=== PATIENT | female | born 1960 | race Caucasian/White ===

== ENCOUNTER → 2022-01-05 09:25 | Outpatient (BNVA) | payer MEDICAID, SELFPAY | PROVIDERS: PCP Internal Medicine; Visit Provider Internal Medicine | DX: J44.9 Chronic obstructive pulmonary disease, unspecified (principal); F17.210 Nicotine dependence, cigarettes, uncomplicated | CPT/HCPCS: 99212 ==

== ENCOUNTER 2022-01-26 09:20 | Outpatient (REF) | payer MEDICAID, SELFPAY ==
--- NOTE | 2022-01-26 13:03 | PFT_ITS ---
Forced vital capacity 76%, FEV1 44%. FEV1/FVC ratio is 44. [id number] 18% and MVV 43%. Post bronchodilator therapy, there is a slight improvement in FVC and [id number]. Total lung capacity 119% and residual volume 172%. Diffusion capacity 42% CONCLUSION: Severe obstructive airway disorder with evidence of air trapping. Minimal response to bronchodilator therapy. Compared to PFT results of 09/21/2017, the flow volumes are further decreased. Diffusion capacity is also slightly decreased. The total lung capacity and residual volume are increased indicative of increased air trapping. Delores Hilario MD MSB/MODL / [id number]
== END 2022-01-26 09:21 | disposition home or self-care (01) ==
LOC: HO.RESP 09:20
PROVIDERS: PCP Internal Medicine; Visit Provider Internal Medicine
DX: R06.00 Dyspnea, unspecified (principal); J44.9 Chronic obstructive pulmonary disease, unspecified; F17.200 Nicotine dependence, unspecified, uncomplicated
CPT/HCPCS: 94060; 94727; 94729

== ENCOUNTER → 2022-03-14 09:26 | Outpatient (BNVA) | payer MEDICAID, SELFPAY | PROVIDERS: PCP Internal Medicine; Visit Provider Internal Medicine | DX: J44.9 Chronic obstructive pulmonary disease, unspecified (principal); F17.210 Nicotine dependence, cigarettes, uncomplicated | CPT/HCPCS: 99212 ==

== ENCOUNTER → 2022-06-15 10:22 | Outpatient (BNVA) | payer MEDICAID, SELFPAY | PROVIDERS: PCP Internal Medicine; Visit Provider Internal Medicine | DX: J44.9 Chronic obstructive pulmonary disease, unspecified (principal); F17.210 Nicotine dependence, cigarettes, uncomplicated | CPT/HCPCS: 99212 ==

== ENCOUNTER 2022-10-10 09:47 | Outpatient (AMB) | payer MEDICAID, SELFPAY ==
[2022-10-10 09:49] VITALS: BP 124/68; PULSE 84; O2SAT 95; BMI 18.9
--- NOTE | 2022-10-10 09:49 | MHC.OFFVIS ---
Intake Vital Signs 10/10/22 09:49 Height 5 ft 5 in Weight 113 lb 8.609 oz BMI 18.9 BP 124/68 Blood Pressure Location Rt brachial Position Sitting Pulse 84 Pulse Source Pulse Oximeter Pulse Oximetry (%) 95 Oxygen Delivery Method Room Air Intake Visit Reasons: copd Intake Note: Pt reports getting a lung scan about 2 months ago and is looking to discuss results. Allergies No Known Allergies Allergy (Verified 10/10/22 10:01) Medication List - Last Reconciled 10/10/22 by Delores Hilario MD albuterol sulfate 90 mcg/actuation (Ventolin HFA) 2 puffs PO Q6H PRN bupropion HCl (Wellbutrin XL) 300 mg PO QAM fluticasone propion-salmeterol 500-50 mcg/dose (Advair Diskus) 1 inh inhalation BID lorazepam 0.5 mg PO DAILY PRN Do you need a note to return to daycare/school/sports/work: No HPI copd HPI Details 62 years old very pleasant lady with history of anxiety disorder, and ongoing smoking. She is being followed for COPD, Her pulmonary status remains very stable. She does have intermittent cough and also shortness of breath on walking up hill or climbing stairs. No attacks of sustained cough or wheezing. She was able to quit smoking only for 2 days then resumed is 4 cigarettes a day. She has tried Chantix in the past but it causes side effects, she does have nicotine patch at home, .but not using it Overall her pulmonary status is remaining stable. She did have low does CT scan, [address] [facility] and was reported benign category 2. [facility] Medical History COPD (chronic obstructive pulmonary disease) Depression Nicotine dependence, cigarettes, uncomplicated Social History Patient Tobacco Use Status: Current everyday Tobacco user Cigarette Packs Per Day: 0.5 Cigarettes Per Day: 4 Years Smoked: 50 Review of Systems Const All systems reviewed & are unremarkable except as noted in HPI and below Eyes Reports no additional complaints ENT Reports nasal congestion (Mild at the change of weather) Card Reports no additional complaints Resp Reports as per HPI GI Reports no additional complaints Reports no additional complaints Musc Reports no additional complaints Skin/Breast Reports system reviewed and no additional complaints, except as documented Neuro Reports no additional complaints Psych Reports anxiety Endo Reports no additional complaints Physical Exam Vital Signs: Last Vital Signs Pulse 84 10/10/22 09:49 BP 124/68 10/10/22 09:49 Pulse Ox 95 10/10/22 09:49 Oxygen Delivery Method Room Air 10/10/22 09:49 BMI result Body Mass Index 18.9 She is of a thin build, sitting comfortably, no distress noted. Const General: comfortable, no acute distress, alert and awake Orientation/consciousness: patient oriented x3 HEENT Head: Yes normal to inspection General nose exam: No nasal polyps present and No nasal discharge present Face and sinus: Yes sinuses nontender Mouth: oropharynx normal Throat: Yes posterior oropharynx normal Eyes General: appearance normal, both eyes and all related structures Neck Neck: Yes normal visual inspection, Yes no lymphadenopathy, Yes trachea midline and Yes no JVD Thyroid: Thyroid normal Chest Chest palpation & inspection: normal inspection of the chest, normal palpation of entire chest wall and no tenderness Resp Other: Percussion note hyper-resonant especially over the lower half of the chest. Breath sounds are distant with. Prolonged expiratory phase No wheezes are heard today . Cardio Palpation: normal PMI Rate: regular rate Rhythm: regular rhythm Heart sounds: no gallops and no murmurs Peripheral pulses: Peripheral pulses 2+ throughout GI Palpation (GI): Soft to palpation, nontender, No hepatosplenomegaly present and no masses Auscultation: normal bowel sounds Back/Spine/Pelvis Thoracic/Lumbar Spine: thoracic and lumbar spine normal to inspection Skin General skin exam: no rashes or lesions noted Neuro General: patient oriented x3 and no focal motor deficits Cranial nerves: Yes CN's II-XII intact bilaterally Extrem General: Yes normal to inspection, Yes no clubbing, cyanosis or edema and Yes no calf tenderness Psych Appearance: grossly normal and well kempt Speech and movement: Normal speech and movement present Assessment & Plan Assessment & Plan (1) Nicotine dependence, cigarettes, uncomplicated: Comment: (Smoker 1ppd x 40yrs, now 4 cig/day) Strongly counselled to quit smoking. She is already on both Bupropion on XL 300 mg daily. Advised to use nicotine patch 14 mg daily to help in quitting cigarettes. Code(s): F17.210 - Nicotine dependence, cigarettes, uncomplicated (2) COPD (chronic obstructive pulmonary disease): Comment: (Severe COPD) remains stable . [place] : CONTINUE ADVAIR 500-50 1 INHALATION B.I.D. AND USE PROAIR 2 PUFFS Q 4-6 HOURS P.R.N. Code(s): J44.9 - Chronic obstructive pulmonary disease, unspecified Coding Level of Care Code Est Pt Level 3 (66271) Diagnoses Nicotine dependence, cigarettes, uncomplicated F17.210 COPD (chronic obstructive pulmonary disease) J44.9
== END 2022-10-10 10:03 | disposition home or self-care (01) ==
PROVIDERS: PCP Internal Medicine; Visit Provider Internal Medicine
DX: F17.210 Nicotine dependence, cigarettes, uncomplicated (principal); J44.9 Chronic obstructive pulmonary disease, unspecified
CPT/HCPCS: 99213

== ENCOUNTER → 2022-10-10 09:47 | Outpatient (BNVA) | payer MEDICAID, SELFPAY | PROVIDERS: PCP Internal Medicine; Visit Provider Internal Medicine | DX: J44.9 Chronic obstructive pulmonary disease, unspecified (principal); F32.A Depression, unspecified; F17.210 Nicotine dependence, cigarettes, uncomplicated; Z79.899 Other long term (current) drug therapy | CPT/HCPCS: 99212 ==

== ENCOUNTER 2023-07-12 09:28 | Outpatient (AMB) | payer MEDICAID, SELFPAY ==
--- NOTE | 2023-07-12 09:47 | A.OFFVIS_ITS ---
Vital Signs 07/12/23 09:48 Height 5 ft 5 in Weight 115 lb BMI 19.1 BP 120/70 Blood Pressure Location Lt brachial Position Sitting Pulse 77 Pulse Source Pulse Oximeter Pulse Oximetry (%) 97 Oxygen Delivery Method Room Air Intake Visit Reasons: copd Intake Note: pt is here for follow up and states cough with some phelgm, stairs and long distance affect her breathing. Direct Care Professional Required: No Allergies No Known Allergies Allergy (Verified 07/12/23 10:01) Medication List - Last Reconciled 07/12/23 by Delores Hilario MD albuterol sulfate 90 mcg/actuation (Ventolin HFA) 2 puffs PO Q6H PRN bupropion HCl XL (Wellbutrin XL) 300 mg PO QAM fluticasone propion-salmeterol 500-50 mcg/dose (Advair Diskus) 1 inh inhalation BID lorazepam 0.5 mg PO DAILY PRN Do you need a note to return to daycare/school/sports/work: No HPI HPI copd: Details: 63 years old female a case of chronic obstructive pulmonary disease and ongoing smoking, She is here for follow-up after almost 9 months. Luckily she has had no acute exacerbation. However she continues to have bouts of cough especially in the morning hours. Taking a shower and steam inhalation helps. She was moving from 1st floor to the 2nd floor apartment and had increased anxiety thus increased her smoking to almost 10 cigarettes a day. She claims that now she has cut it down to 6 cigarettes a day. She has had treatment with Chantix as well as nicotine patches in the past . Currently she is on Wellbutrin 300 mg daily for her anxiety, and this should help her to quit smoking also. [facility] Medical History Depression Nicotine dependence, cigarettes, uncomplicated COPD (chronic obstructive pulmonary disease) Social History Patient Tobacco Use Status: Current everyday Tobacco user Cigarette Packs Per Day: 0.5 Cigarettes Per Day: 6 Years Smoked: 50 Review of Systems Const All systems reviewed & are unremarkable except as noted in HPI and below Eyes Reports no additional complaints ENT Reports nasal congestion (Mild at the change of weather) Card Reports no additional complaints Resp Reports as per HPI GI Reports no additional complaints Reports no additional complaints Musc Reports no additional complaints Skin/Breast Reports system reviewed and no additional complaints, except as documented Neuro Reports no additional complaints Psych Reports anxiety Endo Reports no additional complaints Physical Exam Vital Signs: Last Vital Signs Pulse 77 07/12/23 09:48 BP 120/70 07/12/23 09:48 Pulse Ox 97 07/12/23 09:48 Oxygen Delivery Method Room Air 07/12/23 09:48 BMI result Body Mass Index 19.1 She is of a thin build, sitting comfortably, no distress noted. Const General: comfortable, no acute distress, alert and awake Orientation/consciousness: patient oriented x3 HEENT Head: Yes normal to inspection General nose exam: No nasal polyps present and No nasal discharge present Face and sinus: Yes sinuses nontender Mouth: oropharynx normal Throat: Yes posterior oropharynx normal Eyes General: appearance normal, both eyes and all related structures Neck Neck: Yes normal visual inspection, Yes no lymphadenopathy, Yes trachea midline and Yes no JVD Thyroid: Thyroid normal Chest Chest palpation & inspection: normal inspection of the chest, normal palpation of entire chest wall and no tenderness Resp Other: Percussion note hyper-resonant especially over the lower half of the chest. Breath sounds are distant with. Prolonged expiratory phase No wheezes are heard today . Cardio Palpation: normal PMI Rate: regular rate Rhythm: regular rhythm Heart sounds: no gallops and no murmurs Peripheral pulses: Peripheral pulses 2+ throughout GI Palpation (GI): Soft to palpation, nontender, No hepatosplenomegaly present and no masses Auscultation: normal bowel sounds Back/Spine/Pelvis Thoracic/Lumbar Spine: thoracic and lumbar spine normal to inspection Skin General skin exam: no rashes or lesions noted Neuro General: patient oriented x3 and no focal motor deficits Cranial nerves: Yes CN's II-XII intact bilaterally Extrem General: Yes normal to inspection, Yes no clubbing, cyanosis or edema and Yes no calf tenderness Psych Appearance: grossly normal and well kempt Speech and movement: Normal speech and movement present Office Procedures Spirometry Testing Spirometry Comments: Spirometry done in the office, Dr. Hilario has the results results scanned to her chart. 29819- Spirometry Results Reviewed Results Reviewed: SPIROMETRY IN THE OFFICE. FVC FEV1 FEF 25-75 09/21/2017 85 % 51 % 19 % 77 45 24 Assessment & Plan Assessment & Plan (1) COPD (chronic obstructive pulmonary disease): Comment: (Severe COPD) remains stable . DUE TO CONTINUED SMOKING THERE IS SLIGHT DECLINE IN HER FVC AND FEV1, Code(s): J44.9 - Chronic obstructive pulmonary disease, unspecified Category: Medical Plan: [place] : CONTINUE ADVAIR but the does is decreased to 250-50 1 INHALATION B.I.D. add Spiriva HandiHaler 1 inhalation daily, explained to the patient. AND USE PROAIR 2 PUFFS Q 4-6 HOURS P.R.N. (2) Nicotine dependence, cigarettes, uncomplicated: Comment: (Smoker 1ppd x 40yrs, now 6 cig/day) Code(s): F17.210 - Nicotine dependence, cigarettes, uncomplicated Category: Medical Plan: Strongly counselled to quit smoking. She is already on Bupropion on XL 300 mg daily. SHE IS IN ANNUAL LUNG SCREENING PROGRAM AT [facility] Orders: Orders AMB Spirometry Testing Today J44.9 - Chronic obstructive pulmonary disease, unspecified Medications: New tiotropium bromide (Spiriva with HandiHaler) puncture 1 cap using device; one dose = 2 inhalations 1 cap inhalation DAILY 30 days 60 inhalations 5RF fluticasone propion-salmeterol 250-50 mcg/dose (Advair Diskus) 1 inh inhalation BID 30 days 60 ea 5RF Coding Level of Care Code Est Pt Level 3 (84235) Diagnoses COPD (chronic obstructive pulmonary disease) J44.9 Nicotine dependence, cigarettes, uncomplicated F17.210 CPT Codes Spirometry - CPT: 28487- Spirometry ([id number])
[2023-07-12 09:48] VITALS: BP 120/70; PULSE 77; O2SAT 97; BMI 19.1
== END 2023-07-12 10:28 | disposition home or self-care (01) ==
PROVIDERS: PCP Internal Medicine; Referring Provider Internal Medicine; Visit Provider Internal Medicine
DX: J44.9 Chronic obstructive pulmonary disease, unspecified (principal); F17.210 Nicotine dependence, cigarettes, uncomplicated
CPT/HCPCS: 94010; 99213

== ENCOUNTER → 2023-07-12 09:28 | Outpatient (BNVA) | payer MEDICAID, SELFPAY | PROVIDERS: PCP Internal Medicine; Visit Provider Internal Medicine | DX: J44.9 Chronic obstructive pulmonary disease, unspecified (principal); F17.210 Nicotine dependence, cigarettes, uncomplicated | CPT/HCPCS: 94010; 99212 ==

== ENCOUNTER 2023-09-27 11:03 | Outpatient (REF) | payer MEDICAID, SELFPAY ==
[2023-09-27 14:46] LABS: MANUAL DIFF FLAG NO
[2023-09-27 14:54] LABS: Basophils Absolute Auto 0.1 X10*3/uL (0.0-0.2); Basophils Percent Auto 1.1 % (0-2); Eosinophils Absolute Auto 0.1 X10*3/uL (0.0-0.4); Hematocrit 41.6 % (37.0-47.0); Hemoglobin 14.5 g/dl (12.0-16.0); Imm Gran Abs Auto 0.02 X10*3/uL (0.00-0.03); Imm Gran Pct Auto 0.4 % (0.0-0.4); Lymphocytes Absolute Auto 1.3 X10*3/uL (1.2-4.9); Lymphocytes Percent Auto 23.9 % (20-40); Mean Corpuscular HGB Conc 34.9 g/dl (31.0-35.0); Mean Corpuscular Hemoglobin 31.7 pg (27.0-33.0); Mean Platelet Volume 9.6 fL (9.4-12.3); Monocytes Absolute Auto 0.4 X10*3/uL (0.1-1.2); Monocytes Percent Auto 7.1 % (2-11); Neutrophils Absolute Auto 3.7 x10*3/uL (2.0-8.3); Neutrophils Percent Auto 65.5 % (45-73); Platelet Count 264 X10*3/uL (160-400); Red Blood Count 4.57 X10*6/uL (4.20-5.50); Red Cell Distribution Width 12.7 % (11.0-16.0); White Blood Count 5.6 X10*3/uL (4.8-10.8)
[2023-09-27 15:18] LABS: Alanine Aminotransferase 17 U/L (0-31); Albumin Level 4.3 g/dL (3.5-5.0); Alkaline Phosphatase 63 U/L (39-117); Anion Gap 13 (12-20); Aspartate Amino Transferase 27 U/L (5-31); Bilirubin Total 0.5 mg/dL (0.0-1.0); Blood Urea Nitrogen 11 mg/dL (9-16); Calcium 9.7 mg/dL (8.4-10.2); Carbon Dioxide 24 mmol/L (22-29); Chloride 100 mmol/L (96-108); Cholesterol 179 mg/dL (<200); Estimated Glomerular Filt Rate > 60; Glucose Random 89 mg/dL (60-115); HDL Cholesterol 75 mg/dL (>40); LDL Cholesterol Calculated 95 mg/dL (<100); Potassium 4.9 mmol/L (3.3-5.1); Sodium 132 mmol/L (135-145); Total Protein 7.5 g/dL (6.5-8.0); Triglycerides 46 mg/dL (<150)
[2023-09-28 08:23] LABS: HIV AB/AG Nonreactive (Nonreactive); HIV Num 1 0.05 S/CO (0.00-0.99); ~HepC Num1 0.06 S/CO (0.00-0.79); ~Hepatitis C Antibody Nonreactive (Nonreactive)
== END 2023-09-27 11:04 | disposition home or self-care (01) ==
LOC: HO.CHCLDS 11:03
PROVIDERS: Visit Provider Internal Medicine
DX: J43.8 Other emphysema (principal)
CPT/HCPCS: 36415; 80053; 80061; 85025; 86803; 87389

== ENCOUNTER 2023-12-04 09:45 | Outpatient (AMB) | payer MEDICAID, SELFPAY ==
--- NOTE | 2023-12-04 09:46 | MHC.OFFVIS ---
Vital Signs 12/04/23 09:48 Height 5 ft 5 in Weight 116 lb BMI 19.3 BP 106/72 Blood Pressure Location Lt brachial Position Sitting Respiration 15 Pulse 69 Pulse Source Pulse Oximeter Pulse Oximetry (%) 97 Oxygen Delivery Method Room Air Intake Visit Reasons: COPD Allergies No Known Allergies Allergy (Verified 12/04/23 09:58) Medication List - Last Reconciled 12/04/23 by Delores Hilario MD albuterol sulfate 90 mcg/actuation (Ventolin HFA) 2 puffs PO Q6H PRN bupropion HCl XL (Wellbutrin XL) 300 mg PO QAM fluticasone propion-salmeterol 250-50 mcg/dose (Advair Diskus) 1 inh inhalation BID 30 days lorazepam 0.5 mg PO DAILY PRN tiotropium bromide (Spiriva with HandiHaler) 1 cap inhalation DAILY 30 days Do you need a note to return to daycare/school/sports/work: No HPI HPI COPD: Details: THIS 63 YEARS OLD FEMALE, HAS ADVANCED COPD, DUE TO HER LIFELONG SMOKING. BREATHING HENRY DOING WELL AND REMAINS STABLE. SHE SAY IS THAT SHE CAN WALK A FEW MORE BLOCKS WITHOUT GETTING SHORT OF BREATH. SHE IS HAPPY WITH THE CURRENT COMBINATION OF ADVAIR AND SPIRIVA. USES VENTOLIN FOR RESCUE INHALER BUT ONLY ONCE IN A WHILE. UNFORTUNATELY CONTINUES TO SMOKE BUT HAS CUT DOWN TO 5 CIGARETTES A DAY. SHE SAY IS THE STRESSFUL SITUATIONS MAKE HER SMOKE MORE. SHE IS ON WELLBUTRIN XL 300 MG DAILY , WHICH IS HELPFUL. [facility] Medical History Depression Nicotine dependence, cigarettes, uncomplicated COPD (chronic obstructive pulmonary disease) Social History Patient Tobacco Use Status: Current everyday Tobacco user Cigarette Packs Per Day: 0.5 Cigarettes Per Day: 6 Years Smoked: 50 Review of Systems Const All systems reviewed & are unremarkable except as noted in HPI and below Eyes Reports no additional complaints ENT Reports nasal congestion (Mild at the change of weather) Card Reports no additional complaints Resp Reports as per HPI GI Reports no additional complaints Reports no additional complaints Musc Reports no additional complaints Skin/Breast Reports system reviewed and no additional complaints, except as documented Neuro Reports no additional complaints Psych Reports anxiety Endo Reports no additional complaints Physical Exam Vital Signs: Last Vital Signs Pulse 69 12/04/23 09:48 Resp 15 12/04/23 09:48 BP 106/72 12/04/23 09:48 Pulse Ox 97 12/04/23 09:48 Oxygen Delivery Method Room Air 12/04/23 09:48 BMI result Body Mass Index 19.3 She is of a thin build, sitting comfortably, no distress noted. Const General: comfortable, no acute distress, alert and awake Orientation/consciousness: patient oriented x3 HEENT Head: Yes normal to inspection General nose exam: No nasal polyps present and No nasal discharge present Face and sinus: Yes sinuses nontender Mouth: oropharynx normal Throat: Yes posterior oropharynx normal Eyes General: appearance normal, both eyes and all related structures Neck Neck: Yes normal visual inspection, Yes no lymphadenopathy, Yes trachea midline and Yes no JVD Thyroid: Thyroid normal Chest Chest palpation & inspection: normal inspection of the chest, normal palpation of entire chest wall and no tenderness Resp Other: Percussion note hyper-resonant especially over the lower half of the chest. Breath sounds are distant with. Prolonged expiratory phase No wheezes are heard today . Cardio Palpation: normal PMI Rate: regular rate Rhythm: regular rhythm Heart sounds: no gallops and no murmurs Peripheral pulses: Peripheral pulses 2+ throughout GI Palpation (GI): Soft to palpation, nontender, No hepatosplenomegaly present and no masses Auscultation: normal bowel sounds Back/Spine/Pelvis Thoracic/Lumbar Spine: thoracic and lumbar spine normal to inspection Skin General skin exam: no rashes or lesions noted Neuro General: patient oriented x3 and no focal motor deficits Cranial nerves: Yes CN's II-XII intact bilaterally Extrem General: Yes normal to inspection, Yes no clubbing, cyanosis or edema and Yes no calf tenderness Psych Appearance: grossly normal and well kempt Speech and movement: Normal speech and movement present Results Reviewed Results Reviewed: RECENT LOW-DOSE CT SCAN AT [facility] JULY 24, REPORT IS REVIEWED, A FEW LUNG DENSITIES REMAIN STABLE, SHE IS GOING TO HAVE REPEAT CT SCAN IN 6 MONTHS Assessment & Plan Assessment & Plan (1) COPD (chronic obstructive pulmonary disease): Comment: (Severe COPD) remains stable . She is happy with the current medical regimen, Use of rescue inhaler is infrequent Code(s): J44.9 - Chronic obstructive pulmonary disease, unspecified Category: Medical Plan: Continue Advair 250-51 inhalation b.i.d. Spiriva HandiHaler 1 inhalation daily Ventolin HFA 2 puffs Q 6 hours p.r.n.. (2) Nicotine dependence, cigarettes, uncomplicated: Comment: (Smoker 1ppd x 40yrs, now down to 5 cig/day) , states that because of her stressful life she is not able do quit completely. Code(s): F17.210 - Nicotine dependence, cigarettes, uncomplicated Category: Medical Plan: Again stressed that she should aim to quit smoking completely. Continue taking Wellbutrin XL 300 mg daily Continue to go for low-dose CT scan of the chest as recommended. Coding Level of Care Code Est Pt Level 3 (65687) Diagnoses COPD (chronic obstructive pulmonary disease) J44.9 Nicotine dependence, cigarettes, uncomplicated F17.210
[2023-12-04 09:48] VITALS: BP 106/72; PULSE 69; RESP 15; O2SAT 97; BMI 19.3
== END 2023-12-04 10:00 | disposition home or self-care (01) ==
PROVIDERS: PCP Internal Medicine; Visit Provider Internal Medicine
DX: J44.9 Chronic obstructive pulmonary disease, unspecified (principal); F17.210 Nicotine dependence, cigarettes, uncomplicated
CPT/HCPCS: 99213

== ENCOUNTER → 2023-12-04 09:45 | Outpatient (BNVA) | payer MEDICAID, SELFPAY | PROVIDERS: PCP Internal Medicine; Visit Provider Internal Medicine | DX: J44.9 Chronic obstructive pulmonary disease, unspecified (principal); F17.210 Nicotine dependence, cigarettes, uncomplicated | CPT/HCPCS: 99212 ==

== ENCOUNTER 2024-05-07 09:13 | Outpatient (REF) | payer MEDICAID, SELFPAY ==
--- OUTSIDE RECORDS SUMMARY | 2024-05-07 09:27 | XMS_ITS | Encounter Summary ---
Author Organization [employer] Address [address] [place] [address] Care Team Providers Care Gang Hemstitching Machine Operator Name Role Phone Trevor Cyr MD Primary Care Prov ider Encounter Details Date Type Department Care Team (Latest Contact Info) Description 05/03/2018 Abstract [facility] CONVERSIONS Dental, Provider, DDS Social History Tobacco Use Types Packs/Day Years Used Date Smoking Tobacco: Never Assessed Comments Unknown Sex and Gender Information Value Date Recorded Sex Assigned at Female 01/16/2022 10:19 AM EDT Legal Sex Female 10:19 AM EDT Gender Identity Female 01/16/2022 10:19 AM EDT Sexual Orientation Don't know 01/16/2022 10 :19 AM EDT documented as of this encounter Plan of Treatment Not on file documented as of this encounter Visit Diagnoses Not on filedocumented in this encounter Care Teams Gang Hemstitching Machine Operator Relationship Specialty Start Date End Date Trevor Cyr MD [address] [place] [address] PCP - General Internal Medicine 08/12/19 documented as of this encounter
--- OUTSIDE RECORDS SUMMARY | 2024-05-07 09:27 | XMS_ITS | Encounter Summary ---
Author Organization [employer] Address [address] [place] [address] Care Team Providers Care [employer] Customer Service Name Role Phone Trevor Cyr MD Primary Care Prov ider Encounter Details Date Type Department Care Team (Latest Contact Info) Description 04/16/2024 Travel Social History Tobacco Use Types Packs/Day Years Used Date Smoking Tobacco: Every Day Cigarettes Smokeless Tobacco: Never Alcohol Use Standard Drinks/Week Comments Not Currently 0 (1 standard drink = 0.6 oz pur e alcohol) Depression Answer Date Recorded Patient Health Questionnaire-9 Score 2 09/27/2023 Patient Health Questionnaire-9 Score 2 09/27/2023 Last PHQ-9: Questionnaire Data Not on file 0 09/27/2023 Housing Stability Answer Date Recorded What is your housing situation today? I have lakes[place]ia chaparro 09/27/[address] you li ve. Do you have problems with any of the following? None of the above 09/27/2023 Food Insecurity Answer Date Recorded Within the past 12 months, y ou worried that your food would run out before you got money to buy more: Never True 09/27/2023 Within the past 12 months,th e food you bought just didn't last and you didn't have enough money to get more: Never True 01/2024 Transportation Answer Date Recorded In the past 12 months, has l ack of transportation kept you from medical appts, meetings, work or from getting things needed for daily living? No 09/27/2023 Utilities Answer Date Recorded In the past 12 months, has t he electric, gas, oil or water company threatened to shut off services in your home? No 09/27/2023 Depression Answer Date Recorded Patient Health Questionnaire-2 Score 2 09/27/2023 Internet Access Answer Date Recorded Internet Access Q1 Yes 11/19/2023 Internet Access Q2 Not on file 11/19/2023 Comments Unknown Sex and Gender Information Value Date Recorded Sex Assigned at Female 01/16/2022 10:19 AM EDT Legal Sex Female 10:19 AM EDT Gender Identity Female 01/16/2022 10:19 AM EDT Sexual Orientation Don't know 01/16/2022 10 :19 AM EDT documented as of this encounter Plan of Treatment Not on file documented as of this encounter Visit Diagnoses Not on filedocumented in this encounter Additional Health Concerns Assessment Noted Time PHQ-9 Depression Total Score: 2 09/27/19 24 10:15 AM EDT documented as of this encounter Care Teams [employer] Customer Service Relationship Specialty Start Date End Date Trevor Cyr MD [address] [place] [id number] PCP - General Internal Medicine 08/12/19 documented as of this encounter
--- OUTSIDE RECORDS SUMMARY | 2024-05-07 09:27 | XMS_ITS | Encounter Summary ---
Author Organization [employer] Address [address] [place] [address] Care Team Providers Care Orthotic Technician Name Role Phone Trevor Cyr MD Primary Care Prov ider Encounter Details Date Type Department Care Team (Late st Contact Info) Description 07/30/2023 Orders Only [facility] [address] [place], [place] [id number] ProviderMarilyn MD Social History Tobacco Use Types Packs/Day Years Used Date Smoking Tobacco: Every Day Cigarettes 1 40 Smokeless Tobacco: Never Alcohol Use Standard Drinks/Week Comments Not Currently 0 (1 standard drink = 0.6 oz pur e alcohol) Depression Answer Date Recorded Patient Health Questionnaire-9 Score 6 07/18/2022 Housing Stability Answer Date Recorded What is your housing situation today? I have lakeshia chaparro 01/15/[address] you li ve. Do you have problems with any of the following? None of the above 01/15/2023 Food Insecurity Answer Date Recorded Within the past 12 months, y ou worried that your food would run out before you got money to buy more: Never True 01/15/2023 Within the past 12 months,th e food you bought just didn't last and you didn't have enough money to get more: Never True Transportation Answer Date Recorded In the past 12 months, has l ack of transportation kept you from medical appts, meetings, work or from getting things needed for daily living? No 01/15/2023 Utilities Answer Date Recorded In the past 12 months, has t he electric, gas, oil or water company threatened to shut off services in your home? No 01/15/2023 Depression Answer Date Recorded Patient Health Questionnaire-2 Score 6 07/18/2022 Comments Unknown Sex and Gender Information Value Date Recorded Sex Assigned at Female 01/16/2022 10:19 AM EDT Legal Sex Female 10:19 AM EDT Gender Identity Female 01/16/2022 10:19 AM EDT Sexual Orientation Don't know 01/16/2022 10 :19 AM EDT documented as of this encounter Plan of Treatment Not on file documented as of this encounter Procedures Procedure Name Priority Date/Time Associated Diagnosis Comments CT LUNG SCREENING Routine 07/25/2023 10:40 AM EDT documented in this encounter Results * CT Lung Screening Low dose (07/25/2023 10:40 AM EDT) Anatomical Region Laterality Modality Lung Computed Tomogra phy us Historical Provider MD WHEAT CT PROCEDURES Final R esult documented in this encounter Visit Diagnoses Not on filedocumented in this encounter Additional Health Concerns Assessment Noted Time PHQ-9 Depression Total Score: 6 07/19/19 23 10:58 AM EDT documented as of this encounter Care Teams Orthotic Technician Relationship Specialty Start Date End Date Trevor Cyr MD [address] [place] [id number] PCP - General Internal Medicine 08/12/19 documented as of this encounter
--- OUTSIDE RECORDS SUMMARY | 2024-05-07 09:27 | XMS_ITS | Clinical Summary ---
Author Organization [employer] Address [address] [facility] [address] [place] [address] Care Team Providers Care Folder Machine Adjuster Name Role Phone Trevor Cyr MD Primary Care Prov ider Allergies No known active allergies Medications Fluticasone-Mik meterol (Advair Diskus) 250-50 MCG/ACT aerosol powder Inhale 1 puff Once per day. Active tiotropium (Spiriva) [address] 1 capsule into inhaler and inhale in the morning. Active buPROPion XL (Wellbutrin XL) 300 MG 24 hr tablet Take 300 mg by mouth Once per day. Do not crush, chew, or split. Active LORazepam (Ativan) 0.5 MG tablet Take 0.5 mg by mouth every 8 (eight) hours if needed for anxiety. Active chlorhexidine (Peridex) 0.12 % solution Please use 15 ml solution orally. Swish for 60 seconds and spit. Do not rinse. 473 mL 1 4 Active albuterol (Ventolin HFA) 108 (90 Base) MCG/ACT inhalerIndicati ons:Other emphysema (CMS/HCC) Inhale 2 puffs every 4 (four) hours if needed for wheezing or shortness of breath. 18 g 11 5 Active Active Problems Problem Noted Date Diagnosed Date Smoker 03/20/2023 Assessment & Plan (03/20/2023 3:47 PM EST): Patient smoke 4-5 cig daily, she has been cutting down but refer patches are not helpful, she is on wellbutrin, she wants to keep cutting down, and will let me know if interested in other methods to help her stop smoking Encounter for screening mamm ogram for malignant neoplasm of breast 12/07/2022 Assessment & Plan (12/07/2022 10:37 AM EDT): Will order a mammogram Screening for colon cancer 03/30/2022 Assessment & Plan (12/07/2022 10:36 AM EDT): Will order cologuard Assessment & Plan (03/30/2022 11:11 AM EST): Will order FIT test, does not want to get a colonoscopy, risk vs benefits discussed Other emphysema 03/30/2022 Assessment & Plan (04/30/2024 9:23 AM EST): Followed by pneumology, on advair/spiriva/albuterol, no er visit or recent exacerbation, she is still smoking 4-5 cigarettes daily, she will let me know when interested in stopping Assessment & Plan (09/27/2023 10:55 AM EDT): Followed by pneumology, advair was decreased, on spiriva and rescue inhaler, no recent er visit, she is still smoking 5 cigs a day, she is trying to cut it down, not interested in treatment for now Assessment & Plan (03/20/2023 3:46 PM EST): No recent exacerbation, on advair, and albuterol for rescue, followed by pneumology, will follow reccomnendations Assessment & Plan (12/07/2022 10:37 AM EDT): Followed by pneumology, she is on advair 2 times a day, using rescue inhaler once a day, had lung cancer screening Assessment & Plan (07/18/2022 12:05 PM EDT): No recent er visit, followed by pneumology, had recent lung cancer screening, will renew advair/albuterol, reinforced smoking cessation Assessment & Plan (03/30/2022 5:04 PM EST): Patient on LABA and ventolin as rescue, following pneumonology, she has been trying to cut down on smoking, currently having 4 cigarettes a day, continue current management. Mammogram declined 03/30/2022 Assessment & Plan (03/30/2022 5:04 PM EST): Risk vs benefits discussed, she does not want to get a mammogram Encounters Date Type Department Care Team Description 04/30/2024 8:45 AM EST Office Visit [facility] [address] [place] [address] Trevor Cyr MD Other emphysema ([facility]) (Primary Dx); Screening for colon cancer; Encounter for immunization 04/30/2024 Travel 04/29/2024 Telephone [facility] [address] [place] [address] Trevor Cyr MD Chart Prep 04/16/2024 Travel 04/03/2024 Refill [facility] [address] [place] [address] Trevor Cyr MD Other emphysema ([facility]/HCC) 04/03/2024 Refill [facility] [address] [place] [address] Trevor Cyr MD Other emphysema ([facility]/HCC) 03/27/2024 11:30 AM EST Office Visit [facility] [address] [place] [address] Elizabeth Perdomo DDS 03/18/2024 9:00 AM EST Office Visit [facility] [address] [place] [address] Lazara Leslie DMD 02/28/2024 9:30 AM EST Office Visit [facility] [address] [place] [address] Lazara Leslie DMD 02/12/2024 3:30 PM EST Office Visit [facility] [address] [place] [address] Lazara Leslie DMD from Last 3 Months Immunizations Name Administration Dates Next Due Influenza Injectable Quadriv alant Preservative Free IIV4 MDCK 12/22/2021 Influenza injectable quadriv alent preservative free 04/06/2021,11/26/2019,12/30/2018 Influenza, IIV3, injectable 04/30/2024 Pneumococcal Conjugate PCV 13 09/13/2016 RSV Bivalent 04/30/2024 TD (adult), 2 Lf tetanus tox oid, preservative free, adsorbed 03/15/2007 Tdap 09/03/2017 Zoster, Recombinant 06/01/2022,03/30/2022 Social History Tobacco Use Types Packs/Day Years Used Date Smoking Tobacco: Every Day Cigarettes Smokeless Tobacco: Never Tobacco Cessation:Ready to Q uit: Not Asked; Counseling Given: Not Answered Alcohol Use Standard Drinks/Week Comments Not Currently [...] Don't know 01/16/2022 10 :19 AM EDT Last Filed Vital Signs Vital Sign Reading Time Taken Comments Blood Pressure 133/77 04/30/2024 8:56 AM EST Pulse 80 04/30/2024 8:56 AM EST Temperature 36.6 ??C (97.9 ??F) 04/30/2024 8:56 AM ES T Respiratory Rate 16 04/30/2024 8:56 AM EST Oxygen Saturation 99% 04/30/2024 8:56 AM EST Inhaled Oxygen Concentration - - Weight 53.3 kg (117 lb 9.6 oz) 04/30/2024 8:56 A M EST Height 165.1 cm (5' 5 ) 04/30/2024 8:56 AM EST Body Mass Index 19.57 04/30/2024 8:56 AM EST Plan of Treatment Health Maintenance Due Date Last Done Comments CT Colonography 1960 Colonoscopy 1960 Colorectal Cancer Screening 1960 FIT DNA/Cologuard 1960 FIT 1960 FOBT 1960 Sigmoidoscopy 1960 Alcohol/Substance Use Screening 1972 Hepatitis A Vaccines (1 of 2 - Risk 2-dose series) 1979 Mammogram 2000 Pneumococcal Vaccine: 50+ Years (2 of 2 - PPSV23) 11/08/2016 09/13/2016 Dental X-Ray: Bitewings 04/05/2019 04/04/2018 COVID-19 Vaccine ( season) 2023 04/06/2021, 08/29/2020, 08/01/2020 Dental Oral Exam 06/13/2024 12/14/2023, 05/03/2018 Dental Prophylaxis 06/16/2024 12/17/2023, 2018 Depression Screening 09/26/2024 09/27/2023, 09/27/19 24 SDOH Screening 09/26/2024 09/27/2023 Pap Smear 12/27/2024 12/27/2021 Tobacco Screening 03/27/2025 03/27/2024 Dental X-Ray: Full Mouth 12/14/2026 12/14/2023, 03/20 Cervical Cancer Screening 12/27/2026 HPV/Cotest 12/27/2026 12/27/2021 DTaP/Tdap/Td Vaccines (2 - Td or Tdap) 09/04/2027 09/03/2017, 03/15/2007 Lipid Panel 09/26/2028 09/27/2023, 12/02/2021 Zoster Vaccines Completed 06/01/2022, 03/30/2022 HIV Screening Completed 09/27/2023 Hepatitis C Screening Completed 09/27/2023 Influenza Vaccine Completed 04/30/2024, , 04/06/2021, Additional history exists RSV Patients and Patients Aged 60 years or older Completed 04/30/2024 HIB Vaccines Aged Out No longer eligi ble based on patient's age to complete this topic HPV Vaccines Aged Out No longer eligi ble based on patient's age to complete this topic Hepatitis B Vaccines Aged Out No long er eligible based on patient's age to complete this topic IPV Vaccines Aged Out No longer eligi ble based on patient's age to complete this topic Meningococcal Vaccine Aged Out No oh arin eligible based on patient's age to complete this topic RSV under 20 months Aged Out No longe r eligible based on patient's age to complete this topic Rotavirus Vaccines Aged Out No longer eligible based on patient's age to complete this topic Procedures Procedure Name Priority Date/Time Associated Diagnosis Comments DENTURE FOLLOWUP Routine 03/27/2024 11:3 0 AM EST CASE PRESENTATION, DETAILED AND EXTENSIVE TREATMENT PLANNING Routine 03/18/2024 9:00 AM EST Max COMPLETE DENTURE - MAXILLARY Routine 03/18/2024 9:00 AM EST 19,18,28,30,31 MANDIBULAR PARTIAL DENTURE - RESIN BASE (INCLUDING, RETENTIVE/CLASPING MATERIALS, RESTS, AND TEETH) Routine 03/18/2024 9:00 AM EST CASE PRESENTATION, DETAILED AND EXTENSIVE TREATMENT PLANNING Routine 02/28/2024 9:30 AM EST WAX TRY IN Routine 02/28/2024 9:30 AM EST CASE PRESENTATION, DETAILED AND EXTENSIVE TREATMENT PLANNING Routine 02/12/2024 3:30 PM EST BITE REGISTRATION Routine 02/12/2024 3:3 0 PM EST PROPHYLAXIS - ADULT Routine 12/17/2023 2 :00 PM EDT PANORAMIC RADIOGRAPHIC IMAGE Routine 12/14/2023 10:00 AM EDT PERIODIC ORAL EVALUATION - ESTABLISHED PATIENT Routine 12/14/2023 10:00 AM EDT HEPATITIS C AB W/REFL TO HCV RNA, QN, PCR Routine 09/27/2023 11:08 AM EDT Other emphysema (CMS/HCC) HIV 1/2 ANTIGEN/ANTIBODY, FOURTH GENERATION W/RFL Routine 09/27/2023 11:08 AM EDT Other emphysema (CMS/HCC) LIPID PANEL, STANDARD Routine 09/27/2023 11:06 AM EDT Other emphysema (CMS/HCC) THINPREP IMAGING PAP AND HPV MRNA E6/E7 WITH REFLEX TO HPV 16,18/45 Routine 12/27/2021 8:58 AM EDT BITEWING - SINGLE RADIOGRAPHIC IMAGE Routine 04/04/2018 12:00 AM EST from Last 3 Months or Most Recently Relevant to Health Maintenance Results * Hepatitis C Antibody with Reflex to HCV, RNA, Quantitative, Real-Time PCR (09/27/2023 11:08 AM EDT) Hepatitis C Antibody Nonreactive Nonreactive [facility] Comment:Antibodies to HCV no t detected; does not exclude early acuteHCV infection. Blood Venous blood specimen / Unknown 09/27/2023 11:08 AM EDT 09/27/2023 2:39 PM EDT us Trevor Bhat MD LAB BLOOD ORDERABL ES Final Result [facility] [address] [place] [address] [phone] * HIV-1/2 Antigen and Antibodies, Fourth Generation, with Reflexes (09/27/2023 11:08 AM EDT) HIV AB/AG Nonreactive Nonreactive [facility] Comment:HIV-1 p24 Ag and/or HIV-1/HIV-2 Ab not detected.A test result that is nonreactive does not exclude thepossibility of exposure to or infection with HIV-1 and/orHIV-2. Nonreactive results in this assay for individualswith prior exposure to HIV-1 and/or HIV-2 may be due toantigen and antibody levels that are below the limit ofdetection of this assay.The [employer] HIV Ag/Ab Combo assay result andsupplemental assay results should be interpreted inconjunction with the patient's clinical presentation,history and other laboratory results. If the results areinconsistent with clinical evidence, additional testing issuggested to confirm the result. Blood Venous blood specimen / Unknown 09/27/2023 11:08 AM EDT 09/27/2023 2:39 PM EDT us Trevor Bhat MD LAB BLOOD ORDERABL ES Final Result [facility] [address] [place] [phone] * Lipid Panel, Standard (09/27/2023 11:06 AM EDT) Triglycerides 46 <150 mg/dL [facility] Comment:Desirable Triglyceri de: less than 150 mg/dLBorderline High Triglyceride 150-199 mg/dLHigh Triglyceride: 200-499 mg/dLVery High Triglyceride: greater than or equal to 5OO mg/dL Cholesterol 179 <200 mg/dL [facility] Comment:Desirable Cholestero l: less than 200 mg/dLBorderline High Cholesterol: 200-239 mg/dLHigh Cholesterol: greater than 239 mg/dL LDL Cholesterol Calculated 95 <100 mg/dL [facility] Comment:Desirable LDL: less than 100 mg/dLNear Optimal/Above Optimal LDL: 110- 129 mg/dLBorderline High LDL: 130-159 mg/dLHigh LDL: 160-189 mg/dLVery High LDL: greater than or equal to 190 mg/dL HDL Cholesterol 75 >40 mg/dL [facility] Comment:Desirable HDL: great er than 40 mg/dL Note: This HDL assay may give artificially low results in patients with liver disease. Blood Venous blood specimen / Unknown 09/27/2023 11:06 AM EDT 09/27/2023 2:39 PM EDT Trevor Bhat MD LAB BLOOD ORDERABL ES Final Result [facility] [address] [place] [phone] * THINPREP TIS PAP AND HPV mRNA E6/E7 WITH REFLEX TO HPV 16,18/45 (12/27/2021 8:58 AM EDT) Clinical Information: None given [facility] COMMENT SEE COMMENT [facility] Comment: EXPLANATORY NOTE: ? The Pap is a screening test for cervical cancer. It is ?? not a diagnostic test and is subject to false negative ?? and false positive results. It is most reliable when a ?? satisfactory sample, regularly obtained, is submitted ?? with relevant clinical findings and history, and when ?? the Pap result is evaluated along with historic and ?? current clinical information. ?? COMMENT: This Pap test has been evaluated with computer assisted technology. [facility] Wardrobe Mistress : SEE COMMENT [facility] Comment: LAMAR, CT(ASCP) CT screening location: [address] ??[phone] HPV nRNA E6/E7 Not Detected Not Detected [facility] Comment: Methodology: Diagnostic Technician-Mediated Amplification This assay detects E6/E7 viral messenger RNA (mRNA) from 14 high-risk HPV types (16,18,31,33,35,39,45,51,52,56,58,59,66,68). ? Cervical sources are required for HPV testing. If a vaginal source from a patient who has had a total hysterectomy with removal of cervix was ?? submitted, please contact the testing laboratory for alternative testing options. ?? For additional information, please refer to http://education.[employer]/faq/MPF664l3 (This link if provided for information/ educational purposes only.) Interpretation/R esult: Negative for intraepithelial lesion or malignancy. [facility] LMP: PM [facility] Prev. BX: NONE GIVEN [facility] Prev. PAP: NIL 2014 [facility] SOURCE: None given [facility] Statement Of Adequacy: SEE COMMENT [facility] Comment: Satisfactory for evaluation. Endocervical/transformation zone component present. 12/27/2021 8:58 AM EDT [facility] PATHOLOGY ORDERABLES Final Result [facility] from Last 3 Months or Most Recently Relevant to Health Maintenance Insurance * Guarantor: Greer Sarabia Account Type Relation to Patient Date of Phone Billing Address Personal/Family Self [address] [place] [address] [facility] C3 Member Subscriber Plan / Payer (Ef fective 2022-Present) Name:Greer Sarabia Relation to Subscriber:Self Name:Greer Sarabai Payer ID:Not on file Group ID:Not on file Type:Medicaid Address: [facility] [id number] [place] [phone] [facility] MEDICAID STAND ADULT * Guarantor: Greer Sarabia Account Type Relation to Patient Date of Phone Billing Address Personal/Family Self [address] [facility] [place] [place] [facility] [place] [address] * Guarantor: Greer Sarabia Account Type Relation to Patient Date of Phone Billing Address Personal/Family Self [address] [facility] [place] [facility] [place] [address] * Guarantor: Greer Sarabia Account Type Relation to Patient Date of Phone Billing Address Personal/Family Self [address] [place] [address] Care Teams Folder Machine Adjuster Relationship Specialty Start Date End Date LittlejohnTrevor Lowe MD [address] [place] [address] [place] [address] PCP - General Internal Medicine 08/12/19
--- OUTSIDE RECORDS SUMMARY | 2024-05-07 09:27 | XMS_ITS | Encounter Summary ---
Author Organization [employer] Address [address] [place] [address] Care Team Providers Care Auto Tech Name Role Phone Trevor Cyr MD Primary Care Prov ider Encounter Details Date Type Department Care Team ([facility] st Contact Info) Description 04/30/2024 8:45 AM EST Office Visit [facility] [address] [place], [place] [phone] Trevor Cyr MD [address] [place], [place] [phone] Other emphysema (CMS/HCC) (Primary Dx); Screening for colon cancer; Encounter for immunization Social History Tobacco Use Types Packs/Day Years [...] AM EDT documented as of this encounter Last Filed Vital Signs Vital Sign Reading [...] Mass Index 19.57 04/30/2024 8:56 AM EST documented in this encounter Progress Notes * Trevor Bhat MD - 04/30/2024 8:45 AM EST Subjective Patient ID: Greer Sarabia is a 64 y.o. female who presents for No chief complaint on file.. Asthma She complains of frequent throat clearing and sputum production. Associated symptoms include dyspnea on exertion and malaise/fatigue. Pertinent negatives include no fever. Her past medical history issignificant for asthma. Review of Systems Constitutional: Positive for malaise/fatigue. Negative for fever. Respiratory: Positive for sputum production. Cardiovascular: Positive for dyspnea on exertion. Objective Physical Exam Constitutional: Appearance: Normal appearance. Cardiovascular: Rate and Rhythm: Normal rate and regular rhythm. Heart sounds: No murmur heard. Pulmonary: Effort: Pulmonary effort is normal. No respiratory distress. Breath sounds: No stridor. No wheezing or rhonchi. Neurological: General: No focal deficit present. Mental Status: She is alert and oriented to person, place, and time. Psychiatric: Mood and Affect: Mood normal. Behavior: Behavior normal. Assessment/Plan Problem List Items Addressed This Visit Screening for colon cancer Relevant Orders Cologuard?? colon cancer screening Other emphysema (CMS/HCC) - Primary Followed by pneumology, on advair/spiriva/albuterol, no er visit or recent exacerbation, she is still smoking 4-5 cigarettes daily, she will let me know when interested in stopping Relevant Orders Comprehensive Metabolic Panel Lipid Panel, Standard Other Visit Diagnoses Encounter for immunization Relevant Orders RSV VACCINE (Beyfortus 100 mg) documented in this encounter Miscellaneous Notes * Assessment & Plan Note - Trevor Bhat MD - 04/30/2024 9:23 AM ESTAssociated Problem(s): Other emphysema (CMS/HCC) Followed by pneumology, on advair/spiriva/albuterol, no er visit or recent exacerbation, she is still smoking 4-5 cigarettes daily, she will let me know when interested in stopping documented in this encounter Plan of Treatment Scheduled Orders Name Type Priority Associated Diagnoses Orde r Schedule Comprehensive Metabolic Panel Lab Routine Other emphysema (CMS/HCC) Expected: 04/30/2024 (Approximate), Expires: 04/30/2025 Lipid Panel, Standard Lab Routine Other emphysema (CMS/HCC) Expected: 04/30/2024 (Approximate), Expires: 04/30/2025 Cologuard?? colon cancer screening Lab Routine Screening for colon cancer Ordered: 04/30/2024 documented as of this encounter Visit Diagnoses Diagnosis Other emphysema (CMS/HCC)- Primary Other emphysema Screening for colon cancer Special screening for malignant neoplasms, colon Encounter for immunization documented in this encounter Additional Health Concerns Assessment Noted Time PHQ-9 Depression Total Score: 2 09/27/19 24 10:15 AM EDT documented as of this encounter Care Teams Auto Tech Relationship Specialty Start Date End Date Trevor Cyr MD [address] [place] [address] PCP - General Internal Medicine 08/12/19 documented as of this encounter
--- OUTSIDE RECORDS SUMMARY | 2024-05-07 09:27 | XMS_ITS | Encounter Summary ---
Author Organization [employer] Address [address] [facility] [address]t [place] [address] Care Team Providers Care Wood Caulker Name Role Phone Trevor Cyr MD Primary Care Prov ider Encounter Details Date Type Department Care Team (Late st Contact Info) Description 07/18/2022 Orders Only [facility] [address] [place], [place] [phone] Trevor Cyr MD [address] [place], [place] [phone] Social History Tobacco Use Types Packs/Day Years Used Date Smoking Tobacco: Never Assessed Depression Answer Date Recorded Patient Health Questionnaire-9 Score 6 07/18/2022 Depression Answer Date Recorded Patient Health Questionnaire-2 [...] documented as of this encounter Care Teams Wood Caulker Relationship Specialty Start Date End Date Trevor Cyr MD [address] [place] [address] PCP - General Internal Medicine 08/12/19 documented as of this encounter
--- OUTSIDE RECORDS SUMMARY | 2024-05-07 09:27 | XMS_ITS | Encounter Summary ---
Author Organization [employer] Address [address] [facility] [address]t [place] [address] Care Team Providers Care Starbucks Barista Name Role Phone Trevor Cyr MD Primary Care Prov ider Reason for Visit * Reason Onset Date Comments Chart Prep 04/29/2024 Encounter Details Date Type Department Care Team ([facility] st Contact Info) Description 04/29/2024 Telephone [facility] [address] [place], [place] [phone] Trevor Cyr MD [address] [place] [address] Chart Prep Social History Tobacco Use Types Packs/Day Years [...] AM EDT documented as of this encounter Miscellaneous Notes * Telephone Encounter - Brandie Silva MA - 04/29/2024 3:50 PM EST Chart Prep Labs: not applicable Images: done Vaccines due: yes Referrals: n/a Screenings: colonoscopy , mammogram Overdue care gaps: [employer], Oral Health, disability screening documented in this encounter Plan of Treatment Not on file documented as of this encounter Visit Diagnoses Not on filedocumented in this encounter Additional Health Concerns Assessment Noted Time PHQ-9 Depression Total Score: 2 09/27/19 24 10:15 AM EDT documented as of this encounter Care Teams Starbucks Barista Relationship Specialty Start Date End Date Trevor Cyr MD [address] [place] [phone] PCP - General Internal Medicine 08/12/19 documented as of this encounter
--- OUTSIDE RECORDS SUMMARY | 2024-05-07 09:27 | XMS_ITS | Encounter Summary ---
Author Organization [employer] Address [address] [facility] [address] [place] [address] Care Team Providers Care [employer] Consultant Name Role Phone Trevor Cyr MD Primary Care Prov ider Encounter Details Date Type Department Care Team (Late st Contact Info) Description 01/23/2024 Orders Only [facility] [address] [place], [place] [phone] ProviderMarilyn MD Social History Tobacco Use Types [...] is your housing situation today? I have lakeshiadorothy chaparro 09/27/[address] you [...] Name Priority Date/Time Associated Diagnosis Comments CT CHEST WO CONTRAST- Unsuccessful Attempt Routine 01/21/2024 9:23 AM EST documented in this encounter Results * CT Chest w/o Contrast (01/21/2024 9:23 AM EST) - Unsuccessful Attempt Anatomical Region Laterality Modality Body, Chest Computed Tomogra phy us Historical Provider MD WHEAT CT PROCEDURES Final R esult documented in this encounter Visit Diagnoses Not on filedocumented in this encounter Additional Health Concerns Assessment Noted Time PHQ-9 Depression Total Score: 2 09/27/19 24 10:15 AM EDT documented as of this encounter Care Teams M[employer]ers And Acquisitions Consultant Relationship Specialty Start Date End Date Trevor Cyr MD [address] [place] [phone] PCP - General Internal Medicine 08/12/19 documented as of this encounter
--- OUTSIDE RECORDS SUMMARY | 2024-05-07 09:27 | XMS_ITS | Clinical Summary ---
Author Organization [facility] Address [address] [place] [address] Phone Care Team Providers Care Technical Account Executive Name Role Phone Trevor Cyr Primary Care Provide r Allergies No known active allergies Medical History Medical History Date Comments COPD (chronic obstructive pu lmonary disease) ([facility]) DX:COPD (chronic obstructive pulmonary disease) ([facility]) Depression DX:Depression Nicotine dependence DX:Nicotine dependence Social History Tobacco Use Types Packs/Day Years Used Date Smoking Tobacco: Every Day Cigarettes Comments Unknown Sex and Gender Information Value Date Recorded Sex Assigned at Not on file Legal Sex Female 8:44 PM EST Gender Identity Not on file Sexual Orientation Not on file Obstetrics History Plan of Treatment Health Maintenance Due Date Last Done Comments Breast Cancer Screening 1960 Cervical Cancer Screening: Pap Smear 1981 Pneumococcal Vaccine: 50+ Years (2 of 2 - PPSV23) 11/08/2016 09/13/2016 Pneumococcal Vaccine: Pediatrics (0 to 5 Years) and At-Risk Patients (6 to 64 Years) (2 of 2 - PPSV23) 11/08/2016 09/13/2016 RSV Immunization Patients 60+ Years Old (1 - Risk 60-74 years 1-dose series) 2020 Colorectal Cancer Screening: Colonoscopy 04/13/2023 Social Influencers of Health Screening 04/13/2023 COVID-19 Vaccine ( season) 2023 04/06/2021, 08/29/2020, 08/01/2020 Influenza Vaccine (#1) 2023 , 04/06/2021, 11/26/2019, Additional history exists Lung Cancer Screening (Low Dose CT) 07/25/2024 07/26/2023, 07/25/2023, 07/24/2022 Depression Screening 09/26/2024 09/27/2023 DTaP,Tdap,and Td Vaccines (3 - Td or Tdap) 09/04/2027 09/03/2017, 03/15/2007 Cholesterol Screening (Lipid Panel) 09/26/2028 09/27/2023 Zoster Vaccines Completed 06/01/2022, 03/30/2022 HIV Screening Completed 09/27/2023 Hepatitis C Screening Completed 09/27/2023 HIB Vaccines Aged Out No longer eligi ble based on patient's age to complete this topic HPV Vaccines Aged Out No longer eligi ble based on patient's age to complete this topic Hepatitis A Vaccines Aged Out No long er eligible based on patient's age to complete this topic Hepatitis B Vaccines Aged Out No long er eligible based on patient's age to complete this topic IPV Vaccines Aged Out No longer eligi ble based on patient's age to complete this topic MMR Vaccines Aged Out No longer eligi ble based on patient's age to complete this topic Meningococcal ACWY Vaccine Aged Out N o longer eligible based on patient's age to complete this topic Meningococcal B Vacine Aged Out No lo nger eligible based on patient's age to complete this topic RSV Immunization Patients Under 20 months Aged Out No longer eligible based on patient's age to complete this topic Varicella Vaccines Aged Out No longer eligible based on patient's age to complete this topic Procedures Procedure Name Priority Date/Time Associated Diagnosis Comments CT LUNG SCREENING LOW DOSE Routine 07/26/2023 11:41 AM EDT Encounter for screening for malignant neoplasm of respiratory organs from Last 3 Months or Most Recently Relevant to Health Maintenance Results * CT LUNG SCREENING LOW DOSE (07/26/2023 11:41 AM EDT) Anatomical Region Laterality Modality Computed Tomogra phy 07/25/2023 2:18 PM EDT Narrative 07/26/2023 11:41 AM EDT [facility] Diagnostic Imaging Department [address] [place] [id number] Patient: ??GREER AGUIRRE ?/Age/Sex: 1960 - 63 - F Unit#: ??[id number] ? Location/Status: ??SPDICATLS/REG CLI ? Mnemonic/Ordering Site: ??CTLUNGLD/SPCT Ordering Physician: ??FLEX MEDELLIN MD CT Lung Screening Low Dose - 07/25/23 - 5 Report Status:Signed PROCEDURE: CT chest lung cancer screening low dose examination. INDICATION: CT lung screening. TECHNIQUE: Chest CT without intravenous contrast was performed. ??Low-dose examination was performed. ??Reformatted images were evaluated. DOSE: CTDIvol: 3.2mGy. ??Total exam DLP: 119.6mGy-cm COMPARISON: CT of the chest July 2022 FINDINGS: NODULES: A new 5 mm nodule or node is noted that appears to be in the upper posterior aspect of the right middle lobe and may be within the minor fissure (series 3 image 129). LUNGS: Minimal emphysematous changes. ??Brief regions of bronchial occlusion and minimal bronchial wall thickening are noted. ??No consolidation or effusion. OTHER: Limited views of the upper abdomen appear normal. ??Small, nonspecific mediastinal nodes are noted. ??Atherosclerotic disease of the aorta without aneurysm. IMPRESSION: New 5 mm nodule or node is noted in the right middle lobe or minor fissure as described above. Lung-RADS 3. ??Follow up examination is advised in 6 months. Dictating Physician: ??FELICE SANCHEZ MD Electronically Signed by: ??FELICE SANCHEZ MD Dic Date/Time: ??07/26/23 1133 Sign date/Time: ??07/26/23 1141 Procedure Note Felice Sanchez MD - 11/05/2023 [facility] Diagnostic Imaging Department [address] [place] [id number] Patient: TIMOTHYGREER /Age/Sex: 1960 - 63 - F Unit#: [id number] [facility] CLI Mnemonic/Ordering Site: [facility] Ordering Physician: FLEX MEDELLIN MD CT Lung Screening Low Dose - 07/25/23 - 1427 Report Status:Signed PROCEDURE: CT chest lung cancer screening low dose examination. INDICATION: CT lung screening. TECHNIQUE: Chest CT without intravenous contrast was performed.Low-dose examination was performed. Reformatted images were evaluated. DOSE: CTDIvol: 3.2mGy. Total exam DLP: 119.6mGy-cm COMPARISON: CT of the chest July 2022 FINDINGS: NODULES: A new 5 mm nodule or node is noted that appears to be in theupper posterior aspect of the right middle lobe and may be within the minorfissure (series 3 image 129). LUNGS: Minimal emphysematous changes. Brief regions of bronchialocclusion and minimal bronchial wall thickening are noted. No consolidation oreffusion. OTHER: Limited views of the upper abdomen appear normal. Small,nonspecific mediastinal nodes are noted. Atherosclerotic disease of the aortawithout aneurysm. IMPRESSION: New 5 mm nodule or node is noted in the right middle lobe or minor fissureas described above. Lung-RADS 3. Follow up examination is advised in 6 months. Dictating Physician: FELICE SANCHEZ MD Electronically Signed by: FELICE SANCHEZ MD Dic Date/Time: 07/26/23 1133 Sign date/Time: 07/26/23 1141 Flex Medellin MD IMG CT PROCEDURES Final Result from Last 3 Months or Most Recently Relevant [place] [id number] MEDICA[place] Care Teams Technical Account Executive Relationship Specialty Start Date End Date Trevor Cyr [address] [place], [place] PCP - General 06/16/22
--- OUTSIDE RECORDS SUMMARY | 2024-05-07 09:27 | XMS_ITS | Encounter Summary ---
Author Organization [employer] Address [address] [facility] [address] [place] [address] Care Team Providers Care Poem Writer Name Role Phone Trevor Cyr MD Primary Care Prov ider Encounter Details Date Type Department Care Team (Latest Contact Info) Description 2018 Abstract [facility] CONVERSIONS Dental, Provider, DDS Social History Tobacco [...] on filedocumented in this encounter Care Teams Poem Writer Relationship Specialty Start Date End Date Trevor Cyr MD [address] [place] [address] PCP - General Internal Medicine 08/12/19 documented as of this encounter
--- OUTSIDE RECORDS SUMMARY | 2024-05-07 09:27 | XMS_ITS | Encounter Summary ---
Author Organization [employer] Address [address] [place] [address] Care Team Providers Care Nuclear Fuel Processing Technician Name Role Phone Trevor Cyr MD Primary Care Prov ider Encounter Details Date Type Department Care Team (Latest Contact Info) Description 04/30/2024 Travel Social History Tobacco Use Types Packs/Day [...] documented as of this encounter Care Teams Nuclear Fuel Processing Technician Relationship Specialty Start Date End Date Trevor Cyr MD [address] [place] [phone] PCP - General Internal Medicine 08/12/19 documented as of this encounter
[2024-05-07 14:40] LABS: Alanine Aminotransferase 16 U/L (0-31); Albumin Level 4.4 g/dL (3.5-5.0); Alkaline Phosphatase 66 U/L (39-117); Anion Gap 12 (12-20); Aspartate Amino Transferase 27 U/L (5-31); Bilirubin Total 0.3 mg/dL (0.0-1.0); Blood Urea Nitrogen 13 mg/dL (9-16); Calcium 9.3 mg/dL (8.4-10.2); Carbon Dioxide 25 mmol/L (22-29); Chloride 104 mmol/L (96-108); Cholesterol 182 mg/dL (<200); Estimated Glomerular Filt Rate > 60; Glucose Random 89 mg/dL (60-115); HDL Cholesterol 71 mg/dL (>40); LDL Cholesterol Calculated 99 mg/dL (<100); Potassium 3.9 mmol/L (3.3-5.1); Sodium 137 mmol/L (135-145); Total Protein 7.4 g/dL (6.5-8.0); Triglycerides 61 mg/dL (<150)
[2024-05-08 08:03] LABS: ~Hepatitis C Antibody Nonreactive (Nonreactive)
[2024-05-08 13:57] LABS: HCV RNA PCR Qn <1.18 NOT DETECTED Log IU/mL (NOT DETECTED); HCV RNA PCR Qn <15 NOT DETECTED IU/mL (NOT DETECTED)
== END 2024-05-07 09:14 | disposition home or self-care (01) ==
LOC: HO.CHCLDS 09:13
PROVIDERS: Family Medicine; Visit Provider Internal Medicine
DX: J43.8 Other emphysema (principal)
CPT/HCPCS: 36415; 80053; 80061; 86803; 87522

== ENCOUNTER 2024-07-16 10:45 | Outpatient (AMB) | payer MEDICAID, SELFPAY ==
--- NOTE | 2024-07-16 11:05 | A.OFFVIS_ITS ---
Vital Signs 07/16/24 11:06 Height 5 ft 5 in Weight 119 lb BMI 19.8 BP 132/74 Blood Pressure Location Lt brachial Pulse 81 Pulse Source Pulse Oximeter Pulse Oximetry (%) 96 Oxygen Delivery Method Room Air Intake Visit Reasons: COPD Intake Note: pt is here for follow up and states some breathing issues at times, with some coughing issues. pt needs refills on advair and sprivia Life Science Technician Required: No Allergies No Known Allergies Allergy (Verified 07/16/24 11:53) Medication List - Last Reconciled 07/16/24 by Delores Hilario MD albuterol sulfate 90 mcg/actuation (Ventolin HFA) 2 puffs PO Q6H PRN bupropion HCl XL (Wellbutrin XL) 300 mg PO QAM fluticasone propion-salmeterol 250-50 mcg/dose (Advair Diskus) 1 inh inhalation BID 30 days lorazepam 0.5 mg PO DAILY PRN tiotropium bromide (Spiriva with HandiHaler) 1 cap inhalation DAILY 30 days Do you need a note to return to daycare/school/sports/work: No HPI HPI COPD: Details: This 64 years old female is here for follow-up after 6 months. She is a known case of moderately severe chronic obstructive pulmonary disorder. She is also smoker and has cut down to about 5 cigarettes a day, sometimes increases to 8 cigarettes a day. Her breathing remains stable but she does get short of breath if she walks fast or climbs stairs. She does have mild to moderate intermittent cough which is mostly dry. She does get yearly LDCT at [facility]. [facility] Medical History Depression Nicotine dependence, cigarettes, uncomplicated COPD (chronic obstructive pulmonary disease) Social History Patient Tobacco Use Status: Current everyday Tobacco user Cigarette Packs Per Day: 0.5 Cigarettes Per Day: 6 Years Smoked: 50 Review of Systems Const All systems reviewed & are unremarkable except as noted in HPI and below Eyes Reports no additional complaints ENT Reports nasal congestion (Mild at the change of weather) Card Reports no additional complaints Resp Reports as per HPI GI Reports no additional complaints Reports no additional complaints Musc Reports no additional complaints Skin/Breast Reports system reviewed and no additional complaints, except as documented Neuro Reports no additional complaints Psych Reports anxiety Endo Reports no additional complaints Physical Exam Vital Signs: Last Vital Signs Pulse 81 07/16/24 11:06 BP 132/74 07/16/24 11:06 Pulse Ox 96 07/16/24 11:06 Oxygen Delivery Method Room Air 07/16/24 11:06 BMI result Body Mass Index 19.8 She is of a thin build, sitting comfortably, no distress noted. Const General: comfortable, no acute distress, alert and awake Orientation/consciousness: patient oriented x3 HEENT Head: Yes normal to inspection General nose exam: No nasal polyps present and No nasal discharge present Face and sinus: Yes sinuses nontender Mouth: oropharynx normal Throat: Yes posterior oropharynx normal Eyes General: appearance normal, both eyes and all related structures Neck Neck: Yes normal visual inspection, Yes no lymphadenopathy, Yes trachea midline and Yes no JVD Thyroid: Thyroid normal Chest Chest palpation & inspection: normal inspection of the chest, normal palpation of entire chest wall and no tenderness Resp Other: Percussion note hyper-resonant especially over the lower half of the chest. Breath sounds are distant with. Prolonged expiratory phase No wheezes are heard today . Cardio Palpation: normal PMI Rate: regular rate Rhythm: regular rhythm Heart sounds: no gallops and no murmurs Peripheral pulses: Peripheral pulses 2+ throughout GI Palpation (GI): Soft to palpation, nontender, No hepatosplenomegaly present and no masses Auscultation: normal bowel sounds Back/Spine/Pelvis Thoracic/Lumbar Spine: thoracic and lumbar spine normal to inspection Skin General skin exam: no rashes or lesions noted Neuro General: patient oriented x3 and no focal motor deficits Cranial nerves: Yes CN's II-XII intact bilaterally Extrem General: Yes normal to inspection, Yes no clubbing, cyanosis or edema and Yes no calf tenderness Psych Appearance: grossly normal and well kempt Speech and movement: Normal speech and movement present Assessment & Plan Assessment & Plan (1) COPD (chronic obstructive pulmonary disease): Comment: (Severe COPD) remains stable . She is happy with the current medical regimen, Use of rescue inhaler is infrequent Needs refills on her inhalers Code(s): J44.9 - Chronic obstructive pulmonary disease, unspecified Category: Medical Plan: Continue Advair Diskus 250-50 1 inhalation b.i.d. Spiriva HandiHaler 1 inhalation daily. Albuterol HFA 2 puffs Q 6 hours p.r.n. Prescriptions are renewed. (2) Nicotine dependence, cigarettes, uncomplicated: Comment: (Smoker 1ppd x 40yrs, now down to 5 cig/day) , states that because of her stressful life she is not able do quit completely. Code(s): F17.210 - Nicotine dependence, cigarettes, uncomplicated Category: Medical Plan: Again we did talk about need to cut down on the number of cigarettes or best thing is to quit completely. Continue to have annual LDCT at [facility] Medications: Refilled fluticasone propion-salmeterol 250-50 mcg/dose (Advair Diskus) 1 inh inhalation BID 30 days 60 ea 5RF copd tiotropium bromide (Spiriva with HandiHaler) puncture 1 cap using device; one dose = 2 inhalations 1 cap inhalation DAILY 30 days 30 inhalations 5RF copd albuterol sulfate 90 mcg/actuation (Ventolin HFA) 2 puffs PO Q6H PRN 18 ea 3RF shortness of breath or wheezing Coding Level of Care Code Est Pt Level 3 (57266) Diagnoses COPD (chronic obstructive pulmonary disease) J44.9 Nicotine dependence, cigarettes, uncomplicated F17.210
[2024-07-16 11:06] VITALS: BP 132/74; PULSE 81; O2SAT 96; BMI 19.8
--- OUTSIDE RECORDS SUMMARY | 2024-07-16 12:07 | XMS_ITS | Encounter Summary ---
Author Organization [employer] Address [address] [place] [address] Care Team Providers Care Shirt Creaser Name Role Phone Trevor Cyr MD Primary Care Prov ider Encounter Details Date Type Department Care Team (Late st Contact Info) Description 07/30/2023 Orders Only [facility] [address] [place], [place] [phone] ProviderMarilyn MD Social History Tobacco Use Types [...] documented as of this encounter Care Teams Shirt Creaser Relationship Specialty Start Date End Date Trevor Cyr MD [address] [place] [id number] PCP - General Internal Medicine 08/12/19 documented as of this encounter
--- OUTSIDE RECORDS SUMMARY | 2024-07-16 12:07 | XMS_ITS | Encounter Summary ---
Author Organization [email or web address] Address [address] [facility] [address] [place] [address] Care Team Providers Care Metal Moulder'S Assistant Name Role Phone Trevor Cyr MD Primary Care Prov ider Encounter Details Date Type Department Care Team (Late st Contact Info) Description 07/18/2022 Orders Only [facility] [address] [place], [place] [phone] Trevor Cyr MD [address] [place], [place] [phone] Social History Tobacco Use Types Packs/Day Years [...] documented as of this encounter Care Teams Metal Moulder'S Assistant Relationship Specialty Start Date End Date Trevor Cyr MD [address] [place] [address] PCP - General Internal Medicine 08/12/19 documented as of this encounter
--- OUTSIDE RECORDS SUMMARY | 2024-07-16 12:07 | XMS_ITS | Clinical Summary ---
Author Organization [employer] Address [address] [place] [address] Care Team Providers Care Picker Operator Name Role Phone Trevor Cyr MD [...] Encounters Date Type Department Care Team Description 05/30/2024 Population Health Risk Score [facility] (C3) Department [address] [phone] Provider, Population Health Generic 05/07/2024 Orders Only GENERIC EXTERNAL DATA DEPARTMENT Provider, Generic External Data 04/30/2024 8:45 AM EST Office Visit [facility] [address] [place] [address] Trevor Cyr MD Other emphysema (CMS/HCC) (Primary Dx); Screening for colon cancer; Encounter for immunization 04/30/2024 Travel 04/29/2024 Telephone [facility] [address] [place] [address] Trevor Cyr MD Chart Prep from Last 3 Months Immunizations Name Administration [...] Done Comments CT Colonography 1960 Colonoscopy 1960 FIT 1960 FOBT 1960 Sigmoidoscopy 1960 Alcohol/Substance Use Screening 1972 Mammogram 2000 Pneumococcal Vaccine: 50+ Years (2 [...] Cervical Cancer Screening 12/27/2026 HPV/Cotest 12/27/2026 12/27/2021 Colorectal Cancer Screening 05/12/2027 FIT DNA/Cologuard 05/12/2027 05/12/2024 DTaP/Tdap/Td Vaccines (2 - Td or Tdap) 09/04/2027 09/03/2017, 03/15/2007 Lipid Panel 05/07/2029 05/07/2024, 09/16, 12/02/2021 Zoster Vaccines Completed 06/01/2022, 03/30/2022 HIV Screening Completed 09/27/2023 Influenza Vaccine Completed 04/30/2024, , 04/06/2021, Additional history exists RSV Patients and Patients Aged 60 years or older Completed 04/30/2024 Hepatitis C Screening Completed 05/07/2024, 024 HIB Vaccines Aged Out No longer eligi [...] Procedure Name Priority Date/Time Associated Diagnosis Comments LAB COLOGUARD?? COLON CANCER SCREEN Routine 05/12/2024 7:05 AM EST Screening for colon cancer HCV RNA BY PCR, QN RFX DONNIE Routine 05/07/2024 10:10 AM EST HEPATITIS C ANTIBODY Routine 05/07/2024 10:10 AM EST LIPID PANEL, STANDARD Routine 05/07/2024 9:16 AM EST Other emphysema (CMS/HCC) COMPREHENSIVE METABOLIC PANEL Routine 05/07/2024 9:16 AM EST Other emphysema (CMS/HCC) PROPHYLAXIS - ADULT Routine 12/17/2023 2 :00 PM EDT PANORAMIC RADIOGRAPHIC IMAGE Routine 12/14/2023 10:00 AM EDT PERIODIC ORAL EVALUATION - ESTABLISHED PATIENT Routine 12/14/2023 10:00 AM EDT HIV 1/2 ANTIGEN/ANTIBODY, FOURTH GENERATION W/RFL Routine 09/27/2023 11:08 AM EDT Other emphysema (CMS/HCC) THINPREP IMAGING PAP AND HPV MRNA E6/E7 WITH REFLEX TO HPV 16,18/45 Routine 12/27/2021 8:58 AM EDT BITEWING - SINGLE RADIOGRAPHIC IMAGE Routine 04/04/2018 12:00 AM EST from Last 3 Months or Most Recently Relevant to Health Maintenance Results * Cologuard?? colon cancer screening (05/12/2024 7:05 AM EST) Cologuard Result Negative Negative 05/16/19 10:31 PM EST [employer] (IA #:[id number]) Comment: NEGATIVE TEST RESULT. A negative Cologuard result indicates a low likelihood that a colorectal cancer (CRC) or advanced adenoma (adenomatous polyps with more advanced pre-malignant features) ??is present. The chance that a person with a negative Cologuard test has a colorectal cancer is less than 1 in 1500 (negative predictive value >99.9%) or has an ??advanced adenoma is less than ??5.3% (negative predictive value 94.7%). These data are based on a prospective cross-sectional study of 10,000 individuals at average risk for colorectal cancer who were screened with both Cologuard and colonoscopy. (Monet Michaels et al, N Engl J Med 2014;370(14):1286- 1297) The normal value (reference range) for this assay is negative. COLOGUARD RE-SCREENING RECOMMENDATION: Periodic colorectal cancer screening is an important part of preventive healthcare for asymptomatic individuals at average risk for colorectal cancer. ??Following a negative Cologuard result, the [place] Cancer Society and U.S. Multi-Society Task Force screening guidelines recommend a Cologuard re-screening interval of 3 years. References: [place] Guideline for Colorectal Cancer Screening: https://www.cancer.org/cancer/jybpg-oidrdp-hbjzyo/jhurvxrrn-sqklltzqh-xuxlqyj/ac s-rec ommendations.html.; Prasanna ALCARAZ, Daniela SHARPE, Aditya DickinsonK, Colorectal Cancer Screening: Recommendations for Physicians and Patients from the U.S. Multi-Society Task Force on Colorectal Cancer Screening , Am J Gastroenterology 2017; 112:6847-9603. TEST DESCRIPTION: Composite algorithmic analysis of stool DNA-biomarkers with hemoglobin immunoassay. ?? Quantitative values of individual biomarkers are not reportable and are not associated with individual biomarker result reference ranges. Cologuard is intended for colorectal cancer screening of adults of either sex, 45 years or older, who are at average-risk for colorectal cancer (CRC). Cologuard has been approved for use by the U.S. FDA. The performance of Cologuard was established in a cross sectional study of average-risk adults aged 50-84. Cologuard performance in patients ages 45 to 49 years was estimated by sub-group analysis of near-age groups. Colonoscopies performed for a positive result may find as the most clinically significant lesion: colorectal cancer [4.0%], advanced adenoma (including sessile serrated polyps greater than or equal to 1cm diameter) [20%] or non- advanced adenoma [31%]; or no colorectal neoplasia [45%]. These estimates are derived from a prospective cross-sectional screening study of 10,000 individuals at average risk for colorectal cancer who were screened with both Cologuard and colonoscopy. (Monet Mejias. et al, N Engl J Med 2014;370(14):9502-4244.) Cologuard may produce a false negative or false positive result (no colorectal cancer or precancerous polyp present at colonoscopy follow up). A negative Cologuard test result does not guarantee the absence of CRC or advanced adenoma (pre-cancer). The current Cologuard screening interval is every 3 years. ([place] [employer] and U.S. Multi-Society Task Force). Cologuard performance data in a 10,000 patient pivotal study using colonoscopy as the reference method can be accessed at the following location: www.Planbus/results. Additional description of the Cologuard test process, warnings and precautions can be found at www.[employer]oguard.com. Stool specimen (specimen) 05/12/2024 7:05 AM EST 05/14/2024 11:03 AM EST Trevor Bhat MD LAB MOLECULAR DIAG NOSTICS ORDERABLES Final Result [employer] (CLIA #:[id number]) [place] [address], * Hepatitis C Ab (05/07/2024 10:10 AM EST) Hepatitis C Antibody Nonreactive Nonreactive [facility] Comment:Antibodies to HCV no t detected; does not exclude early acuteHCV infection. 05/07/2024 10:1 0 AM EST 05/07/2024 2:16 PM EST Generic External Data Provider LAB BLOOD ORDERAB LES Final Result Performing Organization Address [facility] Co de Phone Number [facility] [address] [place] [phone] * HCV RNA BY PCR, QN RFX DONNIE (05/07/2024 10:10 AM EST) Pathologist [facility] HCV RNA PCR QN <15 NOT DETECTED NOT DETECTED IU/mL [facility] HCV RNA PCR QN <1.18 NOT DETECTED NOT DETECTED Log IU/mL [facility] HCV RNA COMMENT SEE NOTE [facility] Comment:For additional infor nima, please refer tohttp://education.SwiftStack/faq/JDU04w3(This link is being provided for informational/Educational purposes only.)THIS TEST WAS PERFORMED AT:[facility] [place] [phone] FONTANA MD HCV RNA GENOTYPE,LIPA TNP [facility] Comment:Test not indicated. 05/07/2024 10:1 0 AM EST 05/07/2024 2:16 PM EST Generic External Data Provider LAB BLOOD ORDERAB LES Final Result Performing Organization Address [facility] Co de Phone Number [facility] [address] [place] [phone] * Lipid Panel, Standard (05/07/2024 9:16 AM EST) Triglycerides 61 <150 mg/dL [facility] Comment:Desirable Triglyceri de: less than 150 mg/dLBorderline High Triglyceride 150-199 mg/dLHigh Triglyceride: 200-499 mg/dLVery High Triglyceride: greater than or equal to 5OO mg/dL Cholesterol 182 <200 mg/dL [facility] Comment:Desirable Cholestero l: less than 200 mg/dLBorderline High Cholesterol: 200-239 mg/dLHigh Cholesterol: greater than 239 mg/dL LDL Cholesterol Calculated 99 <100 mg/dL [facility] Comment:Desirable LDL: less than 100 mg/dLNear Optimal/Above Optimal LDL: 110- 129 mg/dLBorderline High LDL: 130-159 mg/dLHigh LDL: 160-189 mg/dLVery High LDL: greater than or equal to 190 mg/dL HDL Cholesterol 71 >40 mg/dL [facility] Comment:Desirable HDL: great er than 40 mg/dL Note: This HDL assay may give artificially low results in patients with liver disease. Blood Venous blood specimen / Unknown 05/07/2024 9:16 AM EST 05/07/2024 2:16 PM EST us Trevor Bhat MD LAB BLOOD ORDERABL ES Final Result [facility] [address] [place] [phone] * Comprehensive Metabolic Panel (05/07/2024 9:16 AM EST) Sodium 137 135 - 145 mmol/L [facility] Potassium 3.9 3.3 - 5.1 mmol/L [facility] Chloride 104 96 - 108 mmol/L [facility] Carbon Dioxide 25 22 - 29 mmol/L [facility] Anion Gap 12 12 - 20 [facility] Urea Nitrogen (BUN) 13 9 - 16 mg/dL [facility] Creatinine, Serum 0.63 0.5 - 1.4 mg/dL [facility] Estimated Glomerular Filt Rate >60 [facility] Comment:Chronic Kidney Disea se: Estimated GFR < 60 mL/min/[id number] Kidney Disease: Estimated GFR < 15 mL/min/1.73m2 Glucose 89 60 - 115 mg/dL [facility] Calcium 9.3 8.4 - 10.2 mg/dL [facility] Bilirubin, Total 0.3 0.0 - 1.0 mg/dL [facility] Aspartate Amino Transferase 27 5 - 31 U/L [facility] Alanine Aminotransferase 16 0 - 31 U/L [facility] Total Protein 7.4 6.5 - 8.0 g/dL [facility] Albumin Level 4.4 3.5 - 5.0 g/dL [facility] Alkaline Phosphatase 66 39 - 117 U/L [facility] Blood Venous blood specimen / Unknown 05/07/2024 9:16 AM EST 05/07/2024 2:16 PM EST Trevor Bhat MD LAB BLOOD ORDERABL ES Final Result Performing Organization Address [facility] Co de Phone Number [facility] [address] [place] [phone] * HIV-1/2 Antigen and Antibodies, Fourth Generation, with Reflexes (09/27/2023 11:08 AM EDT) HIV AB/AG Nonreactive Nonreactive [facility] Comment:HIV-1 p24 Ag and/or HIV-1/HIV-2 Ab not detected.A test result that is nonreactive does not exclude thepossibility of exposure to or infection with HIV-1 and/orHIV-2. Nonreactive results in this assay for individualswith prior exposure to HIV-1 and/or HIV-2 may be due toantigen and antibody levels that are below the limit ofdetection of this assay.The iSSimple HIV Ag/Ab Combo assay result andsupplemental assay results should be interpreted inconjunction with the patient's clinical presentation,history and other laboratory results. If the results areinconsistent with clinical evidence, additional testing issuggested to confirm the result. Blood Venous blood specimen / Unknown 09/27/2023 11:08 AM EDT 09/27/2023 2:39 PM EDT us Trevor Bhat MD LAB BLOOD ORDERABL ES Final Result Performing Organization Address City/[facility]/ZIP Co de Phone Number [facility] [address] [place] [phone] * THINPREP TIS PAP AND HPV [...] been evaluated with computer assisted technology. CONVERT[facility]GACY LABS [employer] Designer : SEE COMMENT [facility] Comment: LAMAR, CT(ASCP) CT screening location: [address] ??[phone] HPV nRNA E6/E7 Not Detected Not Detected [facility] Comment: Methodology: Hand Router Operator-Mediated Amplification This assay detects E6/E7 viral messenger RNA (mRNA) from 14 high-risk HPV types (16,18,31,33,35,39,45,51,52,56,58,59,66,68). ? Cervical sources are required for HPV testing. If a vaginal source from a patient who has had a total hysterectomy with removal of cervix was ?? submitted, please contact the testing laboratory for alternative testing options. ?? For additional information, please refer to http://education.SwiftStack/faq/FNJ898y6 (This link if provided for information/ educational [...] component present. 12/27/2021 8:58 AM EDT Domi Morales CN LAB PATHOLOGY ORDERABLES Final Result [facility] from Last 3 Months or Most Recently Relevant to Health Maintenance Insurance * Guarantor: Greer Sarabia Account Type Relation to Patient Date of Phone Billing Address Personal/Family Self [address] [place] [address] [facility] C3 [facility] MEDICAID STAND ADULT * Guarantor: Greer Sarabia Account Type Relation to Patient Date of Phone Billing Address Personal/Family Self [address] [place] [address] * Guarantor: Greer Sarabia Account Type Relation to Patient Date of Phone Billing Address Personal/Family Self [address] [place] [address] * Guarantor: Greer Sarabia Account Type Relation to Patient Date of Phone Billing Address Personal/Family Self [address] [place] [address] Care Teams Picker Operator Relationship Specialty Start Date End Date Trevor Cyr MD [address] [place] [address] [place] [phone] PCP - General Internal Medicine 08/12/19
--- OUTSIDE RECORDS SUMMARY | 2024-07-16 12:07 | XMS_ITS | Encounter Summary ---
Author Organization [employer] Address [address] [facility] 7t [place] [address] Care Team Providers Care Bicycle Mechanic Name Role Phone Trevor Cyr MD Primary Care Prov ider Encounter Details Date Type Department Care Team (Late st Contact Info) Description 01/23/2024 Orders Only [facility] [address] [place], [place] [phone] ProviderMarilyn MD Social History Tobacco Use Types [...] documented as of this encounter Care Teams Bicycle Mechanic Relationship Specialty Start Date End Date Trevor Cyr MD [address] [place] [phone] PCP - General Internal Medicine 08/12/19 documented as of this encounter
--- OUTSIDE RECORDS SUMMARY | 2024-07-16 12:07 | XMS_ITS | Encounter Summary ---
Author Organization [employer] Address [address] [facility] 7t [place] [address] Care Team Providers Care Section Hand Name Role Phone Trevor Cyr MD Primary [...] on filedocumented in this encounter Care Teams Section Hand Relationship Specialty Start Date End Date Trevor Cyr MD [address] [place] [address] PCP - General Internal Medicine 08/12/19 documented as of this encounter
--- OUTSIDE RECORDS SUMMARY | 2024-07-16 12:07 | XMS_ITS | Clinical Summary ---
Author Organization [facility] Address [address] [place] [address] Phone Care Team Providers Care Trim Line Worker Name Role Phone Trevor Cyr Primary Care Provide r Allergies No known active allergies Medical History Medical History Date Comments COPD (chronic obstructive pu lmonary disease) ([facility] V24, [facility] V28) DX:COPD (chronic o bstructive pulmonary disease) ([facility]) Depression DX:Depression Nicotine dependence DX:Nicotine dependence Social [...] 2 - PPSV23) 11/08/2016 09/13/2016 RSV Immunization Adult Patients (1 - Risk 60-74 years 1-dose series) 2020 Colorectal Cancer Screening: Colonoscopy 04/13/2023 Social Influencers of Health Screening 04/13/2023 COVID-19 Vaccine ( season) 2023 04/06/2021, 08/29/2020, 08/01/2020 Lung Cancer Screening (Low Dose CT) 07/25/2024 07/26/2023, 07/25/2023, 07/24/2022 Depression Screening 09/26/2024 09/27/2023 Influenza Vaccine (Season Ended) 2024 12/22/2021, 04/06/2021, 11/26/2019, Additional history exists DTaP,Tdap,and Td Vaccines (3 - Td or [...] age to complete this topic Meningococcal B Vaccine Aged Out No l onger eligible based on patient's age to complete [...] PM EDT Narrative 07/26/2023 11:41 AM EDT [facility] Diagnostic Imaging Department [address] [place] [address] Patient: ??GREER AGUIRRE ?/Age/Sex: 1960 - 63 - F Unit#: ??[id number] ? Location/Status: ??SPDICATLS/REG CLI ? Mnemonic/Ordering Site: ??CTLUNGLD/SPCT Ordering Physician: ??FLEX MEDELLIN MD CT Lung Screening Low Dose - 07/25/23 - 142 Report Status:Signed PROCEDURE: CT chest lung cancer [...] Procedure Note Felice Sanchez MD - 11/05/2023 [facility] Diagnostic Imaging Department [address] [place] [phone] Patient: TIMOTHYGREER /Age/Sex: 1960 - 63 - F Unit#: [id number] [facility] CLI Mnemonic/Ordering Site: [facility] Ordering Physician: FLEX MEDELLIN MD CT Lung [...] to Health Maintenance Insurance * Guarantor: Greer Aguirre Account Type Relation to Patient Date of Phone Billing Address Personal/Family Self [address] [place] [address] [place] - [place] Care Teams Trim Line Worker Relationship Specialty Start Date End Date Trevor Cyr [address] [place], [place] PCP - General 06/16/22
--- OUTSIDE RECORDS SUMMARY | 2024-07-16 12:07 | XMS_ITS | Encounter Summary ---
Author Organization [employer] Address [address] [facility] 7t [place] [address] Care Team Providers Care Route Sales Delivery Drivers Supervisor Name Role Phone Trevor Cyr MD Primary Care Prov ider Encounter Details Date Type Department Care Team (Latest Contact Info) Description 05/03/2018 Abstract [facility] CONVERSIONS Dental, Provider, DDS Social History [...] on filedocumented in this encounter Care Teams Route Sales Delivery Drivers Supervisor Relationship Specialty Start Date End Date Trevor Cyr MD [address] [place] [address] PCP - General Internal Medicine 08/12/19 documented as of this encounter
== END 2024-07-16 11:20 | disposition home or self-care (01) ==
LOC: HO.HPS 10:46
PROVIDERS: PCP Internal Medicine; Visit Provider Internal Medicine
DX: J44.9 Chronic obstructive pulmonary disease, unspecified (principal); F17.210 Nicotine dependence, cigarettes, uncomplicated
CPT/HCPCS: 99213

== ENCOUNTER → 2024-07-16 10:45 | Outpatient (BNVA) | payer MEDICAID, SELFPAY | PROVIDERS: PCP Internal Medicine; Visit Provider Internal Medicine | DX: J44.9 Chronic obstructive pulmonary disease, unspecified (principal); F17.210 Nicotine dependence, cigarettes, uncomplicated | CPT/HCPCS: 99212 ==

== ENCOUNTER 2025-01-15 09:49 | Outpatient (AMB) | payer MEDICAID, SELFPAY ==
[2025-01-15 09:57] VITALS: BP 110/82; PULSE 79; O2SAT 96; BMI 19.0
--- NOTE | 2025-01-15 09:57 | A.OFFVIS_ITS ---
Vital Signs 01/15/25 09:57 Height 5 ft 5 in Weight 114 lb 0.64 oz BMI 19.0 BP 110/82 Blood Pressure Location Lt brachial Position Sitting Pulse 79 Pulse Source Pulse Oximeter Pulse Oximetry (%) 96 Oxygen Delivery Method Room Air Intake Visit Reasons: COPD Intake Note: pt is here for follow up and states her breathing is affected by cold and heat, some coughing with phlegm Phlebotomist Supervisor/Instructor Required: No Supervisor Ovens: Supervisor Ovens offered & declined Allergies No Known Allergies Allergy (Verified 01/15/25 10:33) Medication List - Last Reconciled 01/15/25 by Delores Hilario MD albuterol sulfate 90 mcg/actuation (Ventolin HFA) 2 puffs PO Q6H PRN bupropion HCl XL (Wellbutrin XL) 300 mg PO QAM fluticasone propion-salmeterol 250-50 mcg/dose (Advair Diskus) 1 inh inhalation BID 30 days lorazepam 0.5 mg PO DAILY PRN tiotropium bromide (Spiriva with HandiHaler) 1 cap inhalation DAILY 30 days Do you need a note to return to daycare/school/sports/work: No HPI HPI COPD: Details: Greer is 64 years old female with history of smoking, anxiety, and moderate degree of COPD. She is here for 6 months follow-up. She was down to 3 cigarettes a day but now has gone up to about 5 or 6 cigarettes a day due to increased anxiety. She continues to use. Her meds regularly Luckily there has been no respiratory infection or any acute. exacerbation since her last visit [facility] Medical History Depression Nicotine dependence, cigarettes, uncomplicated COPD (chronic obstructive pulmonary disease) Social History Patient Tobacco Use Status: Current everyday Tobacco user Cigarette Packs Per Day: 0.5 Cigarettes Per Day: 6 Years Smoked: 50 Review of Systems Const All systems reviewed & are unremarkable except as noted in HPI and below Eyes Reports no additional complaints ENT Reports nasal congestion (Mild at the change of weather) Card Reports no additional complaints Resp Reports as per HPI GI Reports no additional complaints Reports no additional complaints Musc Reports no additional complaints Skin/Breast Reports system reviewed and no additional complaints, except as documented Neuro Reports no additional complaints Psych Reports anxiety Endo Reports no additional complaints Physical Exam Vital Signs: Last Vital Signs Pulse 79 01/15/25 09:57 BP 110/82 01/15/25 09:57 Pulse Ox 96 01/15/25 09:57 Oxygen Delivery Method Room Air 01/15/25 09:57 BMI result Body Mass Index 19.0 She is of a thin build, sitting comfortably, no distress noted. Const General: comfortable, no acute distress, alert and awake Orientation/consciousness: patient oriented x3 HEENT Head: Yes normal to inspection General nose exam: No nasal polyps present and No nasal discharge present Face and sinus: Yes sinuses nontender Mouth: oropharynx normal Throat: Yes posterior oropharynx normal Eyes General: appearance normal, both eyes and all related structures Neck Neck: Yes normal visual inspection, Yes no lymphadenopathy, Yes trachea midline and Yes no JVD Thyroid: Thyroid normal Chest Chest palpation & inspection: normal inspection of the chest, normal palpation of entire chest wall and no tenderness Resp Other: Percussion note hyper-resonant especially over the lower half of the chest. Breath sounds are distant with. Prolonged expiratory phase No wheezes are heard today . Cardio Palpation: normal PMI Rate: regular rate Rhythm: regular rhythm Heart sounds: no gallops and no murmurs Peripheral pulses: Peripheral pulses 2+ throughout GI Palpation (GI): Soft to palpation, nontender, No hepatosplenomegaly present and no masses Auscultation: normal bowel sounds Back/Spine/Pelvis Thoracic/Lumbar Spine: thoracic and lumbar spine normal to inspection Skin General skin exam: no rashes or lesions noted Neuro General: patient oriented x3 and no focal motor deficits Cranial nerves: Yes CN's II-XII intact bilaterally Extrem General: Yes normal to inspection, Yes no clubbing, cyanosis or edema and Yes no calf tenderness Psych Appearance: grossly normal and well kempt Speech and movement: Normal speech and movement present Assessment & Plan Assessment & Plan (1) COPD (chronic obstructive pulmonary disease): Comment: (Severe COPD) remains stable . She is happy with the current medical regimen, Use of rescue inhaler is infrequent Needs refills on her inhalers Code(s): J44.9 - Chronic obstructive pulmonary disease, unspecified Category: Medical Plan: Continue using Advair Diskus 250-51 inhalation b.i.d. , Spiriva HandiHaler 1 capsule by inhalation daily and Ventolin 2 puffs Q 6 hours p.r.n. (2) Nicotine dependence, cigarettes, uncomplicated: Comment: (Smoker 1ppd x 40yrs, now down to 5 cig/day) , states that because of her stressful life she is not able do quit completely. HER SMOKING WAS DOWN TO 3 CIGARETTES A DAY BUT LATELY GONE UP TO 5-6 CIGARETTES A DAY AGAIN. Code(s): F17.210 - Nicotine dependence, cigarettes, uncomplicated Category: Medical Plan: Had a good talk with her about smoking and advised her to cut it down to only a few cigarettes per day. May cut the cigarettes into. Have and smoke only half cigarettes at a time Medications: Refilled tiotropium bromide (Spiriva with HandiHaler) puncture 1 cap using device; one dose = 2 inhalations 1 cap inhalation DAILY 30 caps 5RF copd 30 days Coding Level of Care Code Est Pt Level 3 (81785) Diagnoses COPD (chronic obstructive pulmonary disease) J44.9 Nicotine dependence, cigarettes, uncomplicated F17.210
--- OUTSIDE RECORDS SUMMARY | 2025-01-15 11:33 | XMS_ITS | Clinical Summary ---
Author Organization [employer] Address [address] [facility] 7[address] [place] [address] Care Team Providers Care Sign Erector Name Role Phone Treovr Cyr MD Primary Care Prov ider Allergies [...] 108 (90 Base) MCG/ACT inhalerIndicati ons:Other emphysema (HCC) Inhale 2 puffs every 4 (four) hours [...] discussed Other emphysema 03/30/2022 Assessment & Plan (12/01/2024 1:38 PM EDT): On spiriva/advair and ventolin, no recent er visit due to exacerbation, followed by pulmonology, no changes will be made Assessment & Plan (04/30/2024 9:23 AM EST): [...] Encounters Date Type Department Care Team Description 12/01/2024 1:15 PM EDT Telemedicine [facility] [address] [place] [address] Trevor Cyr MD Screening breast examination (Primary Dx); Other emphysema ([facility]) 12/01/2024 Travel 11/28/2024 Telephone [facility] [address] [place] [address] Trevor Cyr MD Chart Prep 11/18/2024 Telephone [facility] [address] [place] [address] Trevor Cyr MD chart prep from Last 3 Months Immunizations Immunization Administration Dates Next Due Influenza Injectable Quadriv [...] Date Recorded Patient Health Questionnaire-9 Score 2 12/01/2024 Patient Health Questionnaire-9 Score 2 12/01/2024 Last PHQ-9: Questionnaire Data Not on file 0 12/01/2024 Housing Stability Answer Date Recorded What is your housing situation today? I have lakeshia chaparro 12/01/[address] you li ve. Do you have problems with any of the following? None of the above 12/01/2024 Food Insecurity Answer Date Recorded Within the past 12 months, y ou worried that your food would run out before you got money to buy more: Never True 12/01/2024 Within the past 12 months,th e food you bought just didn't last and you didn't have enough money to get more: Never True Transportation Answer Date Recorded In the past 12 months, has l ack of transportation kept you from medical appts, meetings, work or from getting things needed for daily living? No 12/01/2024 Utilities Answer Date Recorded In the past 12 months, has t he electric, gas, oil or water company threatened to shut off services in your home? No 12/01/2024 Depression Answer Date Recorded Patient Health Questionnaire-2 Score 2 12/01/2024 Internet Access Answer Date Recorded Internet Access Q1 Yes 12/01/2024 Internet Access Q2 Not on file 12/01/2024 Comments Unknown Sex and Gender Information Value [...] 80 04/30/2024 8:56 AM EST Temperature 36.6 C (97.9 F) 04/30/2024 8:56 AM EST Respiratory Rate 16 04/30/2024 8:56 AM EST [...] CT Colonography 1960 Colonoscopy 1960 FIT 1960 Sigmoidoscopy 1960 Mammogram 2000 Pneumococcal Vaccine: 50+ Years (2 of 2 - PPSV23) 11/08/2016 09/13/2016 Dental X-Ray: Bitewings 04/05/2019 04/04/2018 Dental Oral Exam 06/13/2024 12/14/2023, 05/03/2018 Dental Prophylaxis 06/16/2024 12/17/2023, 2018 COVID-19 Vaccine ( season) 2024 04/06/2021, 08/29/2020, 08/01/2020 Influenza Vaccine (#1) 2024 , 12/22/2021, 04/06/2021, Additional history exists Pap Smear 12/27/2024 12/27/2021 Tobacco Screening 03/27/2025 03/27/2024 FOBT 05/12/2025 05/12/2024 Alcohol/Substance Use Screening 12/01/2025 12/01/2024 Depression Screening 12/01/2025 12/01/2024, 12/02/19 25 Disability Screening 12/01/2025 12/01/2024 SDOH Screening 12/01/2025 12/01/2024 Dental X-Ray: Full Mouth 12/14/2026 12/14/2023, 03/20 Cervical Cancer Screening 12/27/2026 HPV/Cotest 12/27/2026 12/27/2021 Colorectal Cancer Screening 05/12/2027 FIT DNA/Cologuard 05/12/2027 05/12/2024 DTaP/Tdap/Td Vaccines (2 - Td or Tdap) 09/04/2027 09/03/2017, 03/15/2007 Lipid Panel 05/07/2029 05/07/2024, 07/1 03/2023, 12/02/2021 Zoster Vaccines Completed 06/01/2022, 03/30/2022 HIV Screening Completed 09/27/2023 Lung Cancer Screening Discontinued 01/21/2024 RSV Patients and Patients Aged 60 years [...] Name Priority Date/Time Associated Diagnosis Comments LAB COLOGUARD COLON CANCER SCREEN Routine 05/12/2024 7:05 AM EST Screening for colon cancer HEPATITIS C ANTIBODY Routine 05/07/2024 10:10 AM [...] Result Negative Negative 05/16/19 10:31 PM EST [facility] [facility] (CLIA #:[id number]) Comment: NEGATIVE TEST RESULT. A negative Cologuard result indicates a low likelihood that a colorectal cancer (CRC) or advanced adenoma (adenomatous polyps with more advanced pre-malignant features) is present. The chance that a person with a negative Cologuard test has a colorectal cancer is less than 1 in 1500 (negative predictive value >99.9%) or has an advanced adenoma is less than 5.3% (negative predictive value 94.7%). These data are based on a prospective cross-sectional study of 10,000 individuals at average risk for colorectal cancer who were screened with both Cologuard and colonoscopy. (Monet Michaels et al, N Engl J Med 2014;370(14):1010-0520) The normal value (reference range) for this assay is negative. COLOGUARD RE-SCREENING RECOMMENDATION: Periodic colorectal cancer screening is an important part of preventive healthcare for asymptomatic individuals at average risk for colorectal cancer. Following a negative Cologuard result, the [place] Cancer Society and U.S. Multi-Society Task Force screening guidelines recommend a Cologuard re-screening interval of 3 years. References: [place] Cancer Society Guideline for Colorectal Cancer Screening: https://www.cancer.org/cancer/zyakw-grkdvr-mgwyvs/pyvommodm-lniuhjzdj-gmounwh/ac s-rec ommendations.html.; Prasanna DK, Daniela SHARPE, Aditya DickinsonK, Colorectal Cancer Screening: Recommendations for Physicians and Patients from the U.S. Multi-Society Task Force on Colorectal Cancer Screening , Am J Gastroenterology 2017; 112:6602-8478. TEST DESCRIPTION: Composite algorithmic analysis of stool DNA-biomarkers with hemoglobin immunoassay. Quantitative values of individual biomarkers are not [...] screened with both Cologuard and colonoscopy. (Monet Christine al, N Engl J Med 2014;370(14):6983-5109.) Cologuard may produce a false negative or false positive result (no colorectal cancer or precancerous polyp present at colonoscopy follow up). A negative Cologuard test result does not guarantee the absence of CRC or advanced adenoma (pre-cancer). The current Cologuard screening interval is every 3 years. ([place] Cancer Society and U.S. Multi-Society Task Force). Cologuard performance data in a 10,000 patient pivotal study using colonoscopy as the reference method can be accessed at the following location: www.[employer]yer[employer]id/results. Additional description of the Cologuard test process, warnings and precautions can be found at www.[employer].com. Stool specimen (specimen) 05/12/2024 7:05 AM EST 05/14/2024 11:03 AM EST Trevor Bhat MD LAB MOLECULAR DIAG NOSTICS ORDERABLES Final Result [facility] (CLIA #:[id number]) [place] [address], * Hepatitis C Ab (05/07/2024 10:10 AM EST) Hepatitis C Antibody Nonreactive Nonreactive [facility] Comment:Antibodies to HCV no t detected; does not exclude early acuteHCV infection. 05/07/2024 10:1 0 AM EST 05/07/2024 2:16 PM EST us Generic External Data Provider LAB BLOOD ORDERAB LES Final Result Performing Organization Address [facility]/ZIP Co de Phone Number [facility] [address] [place] [phone] * Lipid Panel, Standard (05/07/2024 9:16 AM EST) Triglycerides 61 <150 mg/dL [facility] Comment:Desirable Triglyceri de: less than 150 mg/dLBorderline High Triglyceride 150-199 mg/dLHigh Triglyceride: 200-499 mg/dLVery High Triglyceride: greater than or equal to 5OO mg/dL Cholesterol 182 <200 mg/dL [facility] Comment:Desirable Cholestero l: less than 200 mg/dLBorderline High Cholesterol: 200-239 mg/dLHigh Cholesterol: greater than 239 mg/dL LDL Cholesterol Calculated 99 <100 mg/dL [facility] Comment:Desirable LDL: less than 100 mg/dLNear Optimal/Above Optimal LDL: 110- 129 mg/dLBorderline High LDL: 130-159 mg/dLHigh LDL: 160-189 mg/dLVery High LDL: greater than or equal to 190 mg/dL HDL Cholesterol 71 >40 mg/dL [facility] Comment:Desirable HDL: great er than 40 mg/dL Note: This HDL assay may give artificially low results in patients with liver disease. Blood Venous blood specimen / Unknown 05/07/2024 9:16 AM EST 05/07/2024 2:16 PM EST us Trevor Bhat MD LAB BLOOD ORDERABL ES Final Result Performing Organization Address City/[facility]/ZIP Co de Phone Number [facility] [address] [place] [address] [phone] * HIV-1/2 Antigen and Antibodies, Fourth Generation, with Reflexes (09/27/2023 11:08 AM EDT) HIV AB/AG Nonreactive Nonreactive [facility] Comment:HIV-1 p24 Ag and/or HIV-1/HIV-2 Ab not detected.A test result that is nonreactive does not exclude thepossibility of exposure to or infection with HIV-1 and/orHIV-2. Nonreactive results in this assay for individualswith prior exposure to HIV-1 and/or HIV-2 may be due toantigen and antibody levels that are below the limit ofdetection of this assay.The ClassLink HIV Ag/Ab Combo assay result andsupplemental assay results should be interpreted inconjunction with the patient's clinical presentation,history and other laboratory results. If the results areinconsistent with clinical evidence, additional testing issuggested to confirm the result. Blood Venous blood specimen / Unknown 09/27/2023 11:08 AM EDT 09/27/2023 2:39 PM EDT Trevor Bhat MD LAB BLOOD ORDERABL ES Final Result [facility] [address] [place] [phone] * THINPREP TIS PAP AND HPV mRNA E6/E7 WITH REFLEX TO HPV 16,18/45 (12/27/2021 8:58 AM EDT) Clinical Information: None given [facility] COMMENT SEE COMMENT [facility] Comment: EXPLANATORY NOTE: The Pap is a screening test for cervical cancer. It is not a diagnostic test and is subject to false negative and false positive results. It is most reliable when a satisfactory sample, regularly obtained, is submitted with relevant clinical findings and history, and when the Pap result is evaluated along with historic and current clinical information. COMMENT: This Pap test has been evaluated with computer assisted technology. [facility] [employer] Admin : SEE COMMENT [facility] Comment: LAMAR, CT(ASCP) CT screening location: [address] [address] HPV nRNA E6/E7 Not Detected Not Detected [facility] Comment: Methodology: Vba Developer-Mediated Amplification This assay detects E6/E7 viral messenger RNA (mRNA) from 14 high-risk HPV types (16,18,31,33,35,39,45,51,52,56,58,59,66,68). Cervical sources are required for HPV testing. If a vaginal source from a patient who has had a total hysterectomy with removal of cervix was submitted, please contact the testing laboratory for alternative testing options. For additional information, please refer to http://education.Splunk/faq/LZU197w8 (This link if provided for information/ educational [...] present. 12/27/2021 8:58 AM EDT Domi Morales CNM LAB PATHOLOGY ORDERABLES Final Result [facility] from Last 3 Months or Most Recently Relevant to Health Maintenance Insurance [facility] C[place] AD[place] Care Teams Sign Erector Relationship Specialty Start Date End Date Trevor Cyr MD [address] [place] [address] [place] [phone] PCP - General Internal Medicine 08/12/19
--- OUTSIDE RECORDS SUMMARY | 2025-01-15 11:33 | XMS_ITS | Encounter Summary ---
Author Organization [employer] Address [address] [facility] 7t [place] [address] Care Team Providers Care Land Department Head Name Role Phone Trevor Cyr MD Primary Care Prov ider Encounter Details Date Type Department Care Team (Latest Contact Info) Description 2018 Abstract [facility] CONVERSION[facility] Dental, Provider, DDS Social History Tobacco [...] on filedocumented in this encounter Care Teams Land Department Head Relationship Specialty Start Date End Date Trevor Cyr MD [address] [place] [address] PCP - General Internal Medicine 08/12/19 documented as of this encounter
--- OUTSIDE RECORDS SUMMARY | 2025-01-15 11:33 | XMS_ITS | Encounter Summary ---
Author Organization [employer] Address [address] [facility] 7t [place] [address] Care Team Providers Care Powder Mixer Name Role Phone Trevor Cyr MD Primary Care Prov ider Encounter Details Date Type Department Care Team (Late st Contact Info) Description 01/23/2024 Orders Only [facility] [address] [place], [place] [phone] ProviderMarilyn MD Social History Tobacco Use Types [...] documented as of this encounter Care Teams Powder Mixer Relationship Specialty Start Date End Date Trevor Cyr MD [address] [place] [phone] PCP - General Internal Medicine 08/12/19 documented as of this encounter
--- OUTSIDE RECORDS SUMMARY | 2025-01-15 11:34 | XMS_ITS | Encounter Summary ---
Author Organization [employer] Address [address] [facility] 7t [place] [address] Care Team Providers Care Machine Tender Name Role Phone Trevor Cyr MD Primary Care Prov ider Encounter Details Date Type Department Care Team (Late st Contact Info) Description 07/18/2022 Orders Only [facility] [address] [place], [place] [phone] Trevor Cyr MD [address] [place] [address] Social History Tobacco Use Types Packs/Day Years [...] AM EDT documented as of this encounter Functional Status * Over the past 2 weeks, how often have you been bothered by any of the following problems? Question Answer Date of Assessment Author Patient Health Questionnaire-2 Score 6 04/2022 10:58 AM Elisha Heller [place] * If you checked off any problems on this questionnaire so far, Question Answer Date of Assessment Author How difficult have these problems made it for you to do your work, take care of things at home, or get along with other people? Somewhat difficult 07/18/2022 10:58 AM Elisha Heller MA * Over the past 2 weeks, how often have you been bothered by any of the following problems? Question Answer Date of Assessment Author Little interest or pleasure in doing things Nearly every day 07/18/2022 10:58 AM Elisha Heller MA Feeling down, depressed, or hopeless Nearly every day 07/18/2022 10:58 AM Elisha Heller [place] Trouble falling or staying asleep, or sleeping too much Not at all 07/18/2022 10:58 AM Elisha Heller MA Feeling tired or having little energy Not at all 07/18/2022 10:58 AM Elisha Heller [place] Poor appetite or overeating Not at all 07/18/2022 10 :58 AM Elisha Heller MA Feeling bad about yourself - or that you are a failure or have let yourself or your family down Not at all 07/18/2022 10:58 AM Elisha Heller MA Trouble concentrating on things, such as reading the newspaper or watching television Not at all 07/18/2022 10:58 AM Elisha Heller MA Moving or speaking so slowly that other people could have noticed? Or the opposite - being so fidgety or restless that you have been moving around a lot more than usual. Not at all 07/18/2022 10:58 AM Elisha Heller MA Thoughts that you would be better off or hurting yourself in some way Not at all 07/18/2022 10:58 AM Elisha Heller M A Patient Health Questionnaire-9 Score 6 07/18/2022 10:58 AM Elisha Heller MA documented as of this encounter Plan of Treatment Not on file documented as of this encounter Visit Diagnoses Not on filedocumented in this encounter Additional Health Concerns Assessment Noted Time PHQ-9 Depression Total Score: 6 07/19/19 23 10:58 AM EDT documented as of this encounter Care Teams Machine Tender Relationship Specialty Start Date End Date Trevor Cyr MD [address] [facility] [place] [phone] PCP - General Internal Medicine 08/12/19 documented as of this encounter
--- OUTSIDE RECORDS SUMMARY | 2025-01-15 11:34 | XMS_ITS | Encounter Summary ---
Author Organization [employer] Address [address] [facility] 7t [place] [address] Care Team Providers Care It Technical Specialist Name Role Phone Trevor Cyr MD Primary Care Prov ider Encounter Details Date Type Department Care Team (Latest Contact Info) Description 05/03/2018 Abstract [facility] CONVERSIONS Dental, Provider, DDS Social History Tobacco [...] on filedocumented in this encounter Care Teams It Technical Specialist Relationship Specialty Start Date End Date Trevor Cyr MD [address] [place] [address] PCP - General Internal Medicine 08/12/19 documented as of this encounter
--- OUTSIDE RECORDS SUMMARY | 2025-01-15 11:34 | XMS_ITS | Encounter Summary ---
Author Organization [employer] Address [address] [facility] [address] 7[address] [place] [address] Care Team Providers Care Mold Checker Name Role Phone Trevor Cyr MD Primary Care Prov ider Encounter Details Date Type Department Care Team (Late st Contact Info) Description 07/30/2023 Orders Only [facility] MED & PEDS [address] [place], [place] [phone] ProviderMarilyn MD Social History Tobacco Use Types [...] documented as of this encounter Care Teams Mold Checker Relationship Specialty Start Date End Date Trevor Cyr MD [address] [place] [phone] PCP - General Internal Medicine 08/12/19 documented as of this encounter
== END 2025-01-15 10:34 | disposition home or self-care (01) ==
LOC: HO.HPS 09:49
PROVIDERS: PCP Internal Medicine; Visit Provider Internal Medicine
DX: J44.9 Chronic obstructive pulmonary disease, unspecified (principal); F17.210 Nicotine dependence, cigarettes, uncomplicated
CPT/HCPCS: 99213

== ENCOUNTER → 2025-01-15 09:49 | Outpatient (BNVA) | payer MEDICAID, SELFPAY | PROVIDERS: PCP Internal Medicine; Visit Provider Internal Medicine | DX: J44.9 Chronic obstructive pulmonary disease, unspecified (principal); F17.210 Nicotine dependence, cigarettes, uncomplicated | CPT/HCPCS: 99212 ==